=== PATIENT | female | born 1980 | race Caucasian/White ===

== ENCOUNTER → 2017-07-04 | Outpatient (CLI) | payer OTHER ==
[~2017-07-04] MED LIST: ALBU90I INH; AMOX500 PO; APAP PO; ASPI81EC; AZIT250 PO; Antivert25 MG PO; BASAGLAR K100 UNIT/1; BENZ100A PO; CEFA500; CEFU250 PO; CEPH500 PO; CLAR500 PO; CLIN150; CLIN150 PO; CODGUAEL PO; CRUTCH2 USE; CYCL10 PO; CYMBALTA PO; Cipro500 MG PO; DESO.25TC; DIAZ5 PO; DIPH50 PO; DULO30 PO; DULO60 PO; DURACEF; ERGO400 PO; ESTR2 PO; Estradiol1 MG PO; FLUO20; GABA300; GABA300 PO; HYDACE10B PO; HYDACE5; HYDACE5 PO; HYDMOR2 PO; HYDROCO PO; IBUP600 PO; IBUP800 PO; INSUASPI SC; INSUASPI SUBQ; INSULANI; INSULANI SC; INSULANI SUBQ; INSULANPEN SC; Keflex500 MG PO; LEVO750 PO; LEVSOD125; LEVSOD125 PO; LEVSOD150 PO; LEVSOD175 PO; LEVSOD88 PO; LOPE2C PO; MECL25; MELA3 PO; METR500 PO; NAPR375 PO; NAPR500 PO; NITR100CA; NOVALOG; ONDA4 PO; ONDA4ODT MM; OXYACE5T PO; OXYC10TA19 PO; PANT40 PO; PENVK500; PHENA100; PHENA200 PO; POTCHL20ER PO; PROC10 PO; PROM12.5S PR; PROM25; PROM25 PO; PROM25S PR; PSEU120ER PO; RANI150 PO; RXHYDACE PO; RXHYOS.125 PO; RXOXYACE PO; SULI150 PO; SULTRIDS PO; TRAM50 PO; Valium5 MG PO; Zofran4 MG PO; [UNRECOGNIZED DRUG - OTHER]
[2017-07-04 17:36] LABS: Bilirubin, Urine Neg (Neg); Blood, Urine 1+ (Neg); Glucose Qualitative, Urine Neg (Neg); Ketones, Urine Neg (Neg); Leukocyte Esterase, Urine 1+ (Neg); Nitrite, Urine Neg (Neg); Protein, Urine Neg (Neg); Urobilinogen, Urine NORM (Normal)
[2017-07-04 17:43] LABS: Appearance, Urine Clear (Clear); Color, Urine Yellow (P-Yellow)
[2017-07-04 17:44] LABS: White Blood Cells, Urine 50-100 /hpf (0-5)
[2017-07-04 17:45] LABS: Bacteria Few /hpf; Squamous Epithelial Cells Few /hpf (Few)
== END | disposition home or self-care (01) ==
LOC: LAB 16:48
PROVIDERS: Nurse Practitioner Family
DX: N39.0 Urinary tract infection, site not specified (principal)
CPT/HCPCS: 81001; 87077; 87086; 87186

== ENCOUNTER → 2017-08-02 | Outpatient (CLI) | payer OTHER | LOC: LAB SHORT 18:13 | DX: N39.0 Urinary tract infection, site not specified (principal) | CPT/HCPCS: 87077; 87086; 87186 ==

== ENCOUNTER → 2019-05-02 | Outpatient (CLI) | payer OTHER ==
[2019-05-03 06:24] LABS: Candida species (DNA Probe) Negative (NEGATIVE); G. vaginalis (DNA Probe) Positive (NEGATIVE); T. vaginalis (DNA Probe) Negative (NEGATIVE)
[2019-05-04 06:07] LABS: CHLAMYDIA TRACHOMATIS, NAA Negative (Negative); NEISSERIA GONORRHOEAE, NAA Negative (Negative)
== END | disposition home or self-care (01) ==
LOC: LAB UCHC 15:28 → LAB SHORT 15:28
PROVIDERS: Nurse Practitioner Family
DX: R30.0 Dysuria (principal)
CPT/HCPCS: 87070; 87077; 87086; 87186; 87205; 87480; 87491; 87510; 87591; 87660

== ENCOUNTER → 2019-06-27 | Outpatient (CLI) | payer OTHER | END | disposition home or self-care (01) | LOC: LAB SHORT 17:39 → LAB 17:39 → LAB FUT 06-27 17:10 | DX: R30.0 Dysuria (principal); R30.9 Painful micturition, unspecified | CPT/HCPCS: 87086 ==

== ENCOUNTER → 2019-10-15 | Outpatient (CLI) | payer OTHER ==
[2019-10-15 17:22] LABS: Source, Urine Clean Catch
[2019-10-15 18:07] LABS: Bilirubin, Urine Neg (Neg); Blood, Urine Neg (Neg); Glucose Qualitative, Urine 4+ (Neg); Ketones, Urine Neg (Neg); Leukocyte Esterase, Urine Neg (Neg); Nitrite, Urine Neg (Neg); Protein, Urine Neg (Neg); Urobilinogen, Urine NORM (Normal)
[2019-10-15 18:16] LABS: Appearance, Urine Hazy (Clear); Color, Urine Yellow (P-Yellow)
[2019-10-15 18:18] LABS: Bacteria Many /hpf; Red Blood Cells, Urine Not Seen /hpf (0-2); Squamous Epithelial Cells Not Seen /hpf (Few); White Blood Cells, Urine 0-2 /hpf (0-5)
== END | disposition home or self-care (01) ==
LOC: OLS 17:18 → LAB SHORT 17:18 → LAB FUT 05-02 18:20 → EDSTATUS 05-02 18:20
PROVIDERS: Nurse Practitioner Family
DX: N39.0 Urinary tract infection, site not specified (principal)
CPT/HCPCS: 81001; 87077; 87086; 87186

== ENCOUNTER → 2019-11-06 | Outpatient (CLI) | payer OTHER ==
[2019-11-06 16:42] LABS: Source, Urine Clean Catch
[2019-11-06 17:30] LABS: Blood, Urine 1+ (Neg); Glucose Qualitative, Urine 1+ (Neg); Ketones, Urine 1+ (Neg); Leukocyte Esterase, Urine 1+ (Neg); Nitrite, Urine Neg (Neg); Protein, Urine 2+ (Neg); Urobilinogen, Urine 1+ (Normal)
[2019-11-06 17:44] LABS: Appearance, Urine Cloudy (Clear); Bilirubin, Urine 1+ (Neg); Color, Urine Yellow (P-Yellow)
[2019-11-06 17:46] LABS: Amorphous Heavy (0-Heavy); Bacteria Mod /hpf
[2019-11-06 17:47] LABS: Red Blood Cells, Urine 0-2 /hpf (0-2); Squamous Epithelial Cells Few /hpf (Few)
== END | disposition home or self-care (01) ==
LOC: LAB SHORT 16:41 → OLS 16:41 → LAB FUT 11-04 13:25
PROVIDERS: Nurse Practitioner Family
DX: N39.0 Urinary tract infection, site not specified (principal)
CPT/HCPCS: 81001; 87086

== ENCOUNTER 2020-06-29 17:13 | Emergency (ER) | payer OTHER ==
[~2020-06-29] VITALS: Ht 154.9 cm; Wt 59.0 kg
[2020-06-29 18:20] LABS: BASOPHILS ABSOLUTE AUTO 0.11 K/mm3 (0.00-0.23); BASOPHILS PERCENT AUTO 1 % (0-2); EOSINOPHILS ABSOLUTE AUTO 0.41 K/mm3 (0.00-0.68); EOSINOPHILS PERCENT AUTO 5 % (0-6); Hematocrit 35.2 % (33.0-51.0); Hemoglobin 12.8 g/dL (11.5-16.0); IMMATURE GRAN ABSOLUTE AUTO 0.02 K/mm3 (0.00-0.10); IMMATURE GRAN PERCENT AUTO 0 % (0-1); LYMPHOCYTES ABSOLUTE AUTO 4.04 K/mm3 (0.84-5.20); LYMPHOCYTES PERCENT AUTO 44 % (21-46); MONOCYTES PERCENT AUTO 6 % (4-13); Mean Corpuscular HGB 30.4 pg (26.0-34.0); Mean Corpuscular HGB Conc 36.4 g/dL (31.5-36.5); Mean Corpuscular Volume 84 fL (80-100); Mean Platelet Volume 10.5 fL (9.1-12.4); NEUTROPHILS ABSOLUTE AUTO 4.08 K/mm3 (1.96-9.15); NEUTROPHILS PERCENT AUTO 45 % (41-73); Platelet Count 350 K/mm3 (150-400); RDW Coefficient Variation 11.6 % (11.7-14.2); RDW Standard Deviation 35.3 fL (35.1-46.3); Red Blood Cell Count 4.21 M/mm3 (3.80-5.20); White Blood Cell Count 9.16 K/mm3 (4.00-11.30)
[2020-06-29 18:22] LABS: Base Excess Venous 0.3 mmol/L; Bicarbonate Venous 24.6 mmol/L (24.0-30.0); PCO2 Venous 37.2 mmHg (38-42); PO2 Venous 47.3 mmHg (38-42); pH Blood Venous 7.43 (7.34-7.37)
[2020-06-29 18:49] LABS: Albumin, Blood 3.9 g/dL (3.4-5.0); Albumin/Globulin Ratio 0.9 (0.8-1.8); Bilirubin, Total 0.5 mg/dL (0.1-1.0); Bun/Creatinine Ratio 12.3 (12.0-20.0); Calcium, Blood 9.7 mg/dL (8.5-10.1); Creatinine, Blood 1.14 mg/dL (0.40-1.00); Globulin, Blood 4.4 g/dL (2.2-4.0); Potassium, Blood 4.2 mmol/L (3.5-5.5); Total Protein, Blood 8.3 g/dL (6.4-8.2)
[2020-06-29 19:02] LABS: Beta-hydroxybutyrate 7.9 mg/dL (0.2-2.8)
[2020-06-29 20:34] LABS: Source, Urine Clean Catch
[2020-06-29 20:37] LABS: Appearance, Urine Clear (Clear); Bilirubin, Urine Neg (Neg); Blood, Urine Neg (Neg); Color, Urine Yellow (P-Yellow); Glucose Qualitative, Urine 4+ (Neg); Ketones, Urine 2+ (Neg); Leukocyte Esterase, Urine Neg (Neg); Nitrite, Urine Neg (Neg); Protein, Urine Neg (Neg); Urobilinogen, Urine NORM (Normal)
[2020-06-29 23:02] LABS: Anion Gap 6 mmol/L (6-16); Blood Urea Nitrogen 11 mg/dL (8-24); Bun/Creatinine Ratio 10.9 (12.0-20.0); CO2, Blood 25 mmol/L (21-32); Calcium, Blood 7.9 mg/dL (8.5-10.1); Chloride, Blood 105 mmol/L (98-108); Creatinine, Blood 1.01 mg/dL (0.40-1.00); Glomerular Filtration Rate >60 (60-); Glucose, Blood 315 mg/dL (70-99); Potassium, Blood 3.7 mmol/L (3.5-5.5); Sodium, Blood 136 mmol/L (136-145)
== END 2020-06-30 00:05 | disposition home or self-care (01) ==
LOC: ER 17:13
PROVIDERS: Emergency Medicine; Student in an Organized Health Care Education/Training Program
DX: E11.65 Type 2 diabetes mellitus with hyperglycemia (principal); R10.9 Unspecified abdominal pain; E03.9 Hypothyroidism, unspecified; E11.43 Type 2 diabetes mellitus with diabetic autonomic (poly)neuropathy; K31.84 Gastroparesis; F17.210 Nicotine dependence, cigarettes, uncomplicated; Z79.3 Long term (current) use of hormonal contraceptives; Z79.4 Long term (current) use of insulin; Z79.899 Other long term (current) drug therapy
CPT/HCPCS: 36415; 71046; 74177; 80048; 80053; 81003; 82010; 82803; 82947; 83605; 85025; 96361; 96374-59; 99285-25; J2550; J7030; Q9967

== ENCOUNTER → 2021-11-02 | Outpatient (CLI) | payer OTHER | END | disposition home or self-care (01) | LOC: LAB SHORT 12:15 → LAB 12:15 | DX: K21.9 Gastro-esophageal reflux disease without esophagitis (principal); R11.2 Nausea with vomiting, unspecified | CPT/HCPCS: 87338 ==

== ENCOUNTER → 2022-07-26 | Outpatient (CLI) | payer OTHER ==
[2022-07-26 17:38] LABS: U Amphetamine Screen Not Detected; U Barbituate Screen Not Detected; U Benzodiazapine Screen DETECTED; U Buprenorphine Screen Not Detected; U Cannabinoids Screen DETECTED; U Cocaine Screen Not Detected; U Methadone Screen Not Detected; U Methamphetamine Screen Not Detected; U Opiates Screen Not Detected; U Oxycodone Screen Not Detected; U Phencyclidine Screen Not Detected; U Propoxyphene Screen Not Detected
== END | disposition home or self-care (01) ==
LOC: LAB 16:18 → LAB SHORT 16:18
PROVIDERS: Nurse Practitioner Psychiatric/Mental Health
DX: F41.1 Generalized anxiety disorder (principal)

== ENCOUNTER 2022-08-07 13:03 | Emergency (ER) | payer OTHER ==
[~2022-08-07] VITALS: Ht 170.2 cm; Wt 62.1 kg
[2022-08-07] MEDS ORDERED: Norco 5-325 Ta1 EACH PO (15:01)
== END 2022-08-07 15:08 | disposition home or self-care (01) ==
LOC: ER 13:03
DX: S20.212A Contusion of left front wall of thorax, initial encounter (principal); W01.0XXA Fall on same level from slipping, tripping and stumbling without subsequent striking against object, initial encounter; E11.9 Type 2 diabetes mellitus without complications; E03.9 Hypothyroidism, unspecified; F17.210 Nicotine dependence, cigarettes, uncomplicated; Z88.2 Allergy status to sulfonamides; Z88.8 Allergy status to other drugs, medicaments and biological substances; Z88.6 Allergy status to analgesic agent; Z88.1 Allergy status to other antibiotic agents; Z91.040 Latex allergy status; Z79.899 Other long term (current) drug therapy; Z79.4 Long term (current) use of insulin
CPT/HCPCS: 71046

== ENCOUNTER 2022-08-12 06:51 | Inpatient (IN) | payer OTHER ==
[~2022-08-12] VITALS: Ht 154.9 cm; Wt 68.4 kg
[~2022-08-12 06:51] MED LIST changes: -BASAGLAR K100 UNIT/1; +BASAGLAR K100 UNIT/1 SC; +Norco 5-325 Ta1 EACH PO
[2022-08-12 07:17] LABS: BASOPHILS ABSOLUTE AUTO 0.08 K/mm3 (0.00-0.23); BASOPHILS PERCENT AUTO 1 % (0-2); EOSINOPHILS PERCENT AUTO 0 % (0-6); Hematocrit 35.4 % (33.0-51.0); Hemoglobin 11.9 g/dL (11.5-16.0); IMMATURE GRAN ABSOLUTE AUTO 0.07 K/mm3 (0.00-0.10); IMMATURE GRAN PERCENT AUTO 1 % (0-1); LYMPHOCYTES ABSOLUTE AUTO 1.55 K/mm3 (0.84-5.20); LYMPHOCYTES PERCENT AUTO 11 % (21-46); MONOCYTES ABSOLUTE AUTO 0.65 K/mm3 (0.16-1.47); MONOCYTES PERCENT AUTO 5 % (4-13); Mean Corpuscular HGB 30.6 pg (26.0-34.0); Mean Corpuscular HGB Conc 33.6 g/dL (31.5-36.5); Mean Corpuscular Volume 91 fL (80-100); Mean Platelet Volume 10.2 fL (9.1-12.4); NEUTROPHILS ABSOLUTE AUTO 11.99 K/mm3 (1.96-9.15); NEUTROPHILS PERCENT AUTO 84 % (41-73); Platelet Count 439 K/mm3 (150-400); RDW Coefficient Variation 12.2 % (11.7-14.2); RDW Standard Deviation 40.5 fL (35.1-46.3); Red Blood Cell Count 3.89 M/mm3 (3.80-5.20); White Blood Cell Count 14.34 K/mm3 (4.00-11.30)
[2022-08-12 07:57] LABS: Albumin, Blood 3.3 g/dL (3.4-5.0); Albumin/Globulin Ratio 0.6 (0.8-1.8); Bilirubin, Total 0.5 mg/dL (0.1-1.0); Calcium, Blood 9.7 mg/dL (8.5-10.1); Creatinine, Blood 1.04 mg/dL (0.40-1.00); Globulin, Blood 5.2 g/dL (2.2-4.0); Potassium, Blood 5.3 mmol/L (3.5-5.5); Total Protein, Blood 8.5 g/dL (6.4-8.2)
[2022-08-12] MEDS ORDERED: SERT100 PO (10:36)
[2022-08-12] MEDS ORDERED: GABA100 PO (10:38)
[2022-08-12] MEDS ORDERED: INSULANPEN SC (10:40)
[2022-08-12 11:26] LABS: Bun/Creatinine Ratio 21.4 (12.0-20.0); Calcium, Blood 8.7 mg/dL (8.5-10.1); Creatinine, Blood 1.03 mg/dL (0.40-1.00); Potassium, Blood 4.2 mmol/L (3.5-5.5)
--- NOTE | 2022-08-12 12:37 | NUR ---
ADMIT PT ARRIVED TO CIU 16 AT 1020. PT ALERT AND ORIENTED, ABLE TO STAND AND TRANSFER SELF TO BED WITH MINIMAL ASSIST. PT NAUSEOUS AND RETCHING. PRN ZOFRAN GIVEN WITH MILD EFFECT. ABOUT AN HOUR LATER PT WAS RETCHING AGAIN SO PRN PHENERGAN GIVEN WITH BETTER EFFECT. PT GOT UP TO COMMODE, BUT ONLY HAD A SMEAR. NO VOID YET. ANION GAP AND CO2 CORRECTED. DR. BROWNING AWARE, BUT SINCE PT IS NAUSEOUS STILL PLAN IS TO CONTINUE INSULIN GTT AND REASSESS ABILITY TO TAKE PO AT 1600.
[2022-08-12 14:52] LABS: Bun/Creatinine Ratio 21.3 (12.0-20.0); Calcium, Blood 8.3 mg/dL (8.5-10.1); Creatinine, Blood 0.94 mg/dL (0.40-1.00); Potassium, Blood 3.9 mmol/L (3.5-5.5)
--- NOTE | 2022-08-12 17:11 | NUR ---
SHIFT SUMMARY PT HAS CONTINUED TO BE NAUSEOUS AND RETCH DESPITE ANTIEMETICS. AFTER [facility] RECEIVES A DOSE SHE HAS A BRIEF RESPITE BEFORE THE NAUSEA RETURNS. PT'S ANION GAP HAS CLOSED. SPOKE WITH DR. BROWNING ABOUT THE INSULIN GTT AND PLAN IS TO LEAVE GTT GOING UNTIL PT'S NAUSEA SUBSIDES AND SHE IS ABLE TO TOLERATE PO INTAKE. LUNGS REMAIN CLEAR, RA, SR, BP STABLE. NO VOID YET AND PT HAS NO URGE TO VOID. WILL BLADDER SCAN IF UNABLE TO VOID. CONTINUING TO MONITOR.
--- NOTE | 2022-08-12 18:10 | NUR ---
SPOKE WITH DR. BROWNING ABOUT PT'S PERSISTENT NAUSEA. RECEIVED ORDER FOR ONE TIME ORDER OF ATIVAN TO TRY. IF IT HELPS WITH THE NAUSEA, DR. BROWNING GAVE ORDERS TO GIVE Q4H PRN. PT ALSO GOT UP TO THE COMMODE AND VOIDED, BUT SHE HAD A SMALL STOOL WELL THAT MIXED WITH IT SO UNABLE TO SEND UA.
[2022-08-12 19:03] LABS: Bun/Creatinine Ratio 18.6 (12.0-20.0); Calcium, Blood 8.4 mg/dL (8.5-10.1); Creatinine, Blood 0.97 mg/dL (0.40-1.00); Potassium, Blood 4.1 mmol/L (3.5-5.5)
[2022-08-12 23:54] LABS: Bun/Creatinine Ratio 18.4 (12.0-20.0); Calcium, Blood 8.2 mg/dL (8.5-10.1); Creatinine, Blood 0.93 mg/dL (0.40-1.00); Potassium, Blood 3.8 mmol/L (3.5-5.5)
[2022-08-13 05:33] LABS: BASOPHILS ABSOLUTE AUTO 0.04 K/mm3 (0.00-0.23); BASOPHILS PERCENT AUTO 0 % (0-2); EOSINOPHILS ABSOLUTE AUTO 0.03 K/mm3 (0.00-0.68); EOSINOPHILS PERCENT AUTO 0 % (0-6); Hematocrit 27.4 % (33.0-51.0); Hemoglobin 9.2 g/dL (11.5-16.0); IMMATURE GRAN ABSOLUTE AUTO 0.14 K/mm3 (0.00-0.10); IMMATURE GRAN PERCENT AUTO 1 % (0-1); LYMPHOCYTES ABSOLUTE AUTO 2.36 K/mm3 (0.84-5.20); LYMPHOCYTES PERCENT AUTO 16 % (21-46); MONOCYTES ABSOLUTE AUTO 0.83 K/mm3 (0.16-1.47); MONOCYTES PERCENT AUTO 6 % (4-13); Mean Corpuscular HGB 30.1 pg (26.0-34.0); Mean Corpuscular HGB Conc 33.6 g/dL (31.5-36.5); Mean Corpuscular Volume 90 fL (80-100); Mean Platelet Volume 10.1 fL (9.1-12.4); NEUTROPHILS ABSOLUTE AUTO 11.26 K/mm3 (1.96-9.15); NEUTROPHILS PERCENT AUTO 77 % (41-73); Platelet Count 361 K/mm3 (150-400); RDW Coefficient Variation 12.8 % (11.7-14.2); RDW Standard Deviation 41.7 fL (35.1-46.3); Red Blood Cell Count 3.06 M/mm3 (3.80-5.20); White Blood Cell Count 14.66 K/mm3 (4.00-11.30)
[2022-08-13 05:53] LABS: Bun/Creatinine Ratio 16.5 (12.0-20.0); Calcium, Blood 8.3 mg/dL (8.5-10.1); Creatinine, Blood 0.97 mg/dL (0.40-1.00); Potassium, Blood 3.9 mmol/L (3.5-5.5)
--- NOTE | 2022-08-13 06:21 | NUR ---
PATIENT IS AOX4, WEAK, NAUSEAOUS, AND DIZZY WITH AMBULATION. SMALL EMESIS X 5 EPISODES, WITH LOTS OF COUGHING. GAVE ZOFRAN, PHENERGAN, ATIVAN AND HALDOL WITH TEMPORARY RELIEF. SQ INSULIN ACHS. ONE TIME S/S AT 0615 FOR ESCALATING BG 322. PREVIOUS BG 269. GOAL TO CONTROL N/V, RESUME CCD AND RECEIVE SQ TO CONTROL BG.
[2022-08-13 11:38] LABS: Source, Urine Clean Catch
[2022-08-13 11:41] LABS: Appearance, Urine Clear (Clear); Bilirubin, Urine Neg (Neg); Blood, Urine Neg (Neg); Color, Urine Yellow (P-Yellow); Glucose Qualitative, Urine 4+ (Neg); Ketones, Urine 3+ (Neg); Leukocyte Esterase, Urine Neg (Neg); Nitrite, Urine Neg (Neg); Protein, Urine 2+ (Neg); Specific Gravity, Urine 1.015 (1.003-1.022); Urobilinogen, Urine NORM (Normal)
[2022-08-13 11:59] LABS: Red Blood Cells, Urine Not Seen /hpf (0-2); Squamous Epithelial Cells Mod /hpf (Few); White Blood Cells, Urine Not Seen /hpf (0-5)
[2022-08-13 12:00] LABS: Bacteria Rare /hpf
--- NOTE | 2022-08-13 12:35 | NUR ---
REASSESSMENT PT HAS BEEN RESTING THROUGHOUT THE MORNING. HER NAUSEA IS STILL PRESENT, BUT SHE HAS NOT BEEN RETCHING LIKE SHE WAS YESTERDAY. SPOKE WITH DR. BROWNING THIS AM AND BLOOD SUGAR CHECKS SWITCHED TO Q6 UNTIL PT IS EATING. IV FLUIDS ALSO RESTARTED. BLOOD SUGAR AT NOON WAS 56. PT WAS ABLE TO KEEP 120ML OF APPLE JUICE DOWN AND GLUCOSE WAS 81 40 MINUTES LATER. PT GIVEN ANOTHER 120ML OF APPLE JUICE TO SIP ON. LUNGS ARE CLEAR, RA, SR IN THE UPPER 90S, BP STABLE. PT GOT UP TO COMMODE AND VOIDED, UA SENT PER DR. BROWNING. PT HAS SPOKE WITH HER SO VIA PHONE AND UPDATED HIM.
--- NOTE | 2022-08-13 17:13 | NUR ---
SHIFT SUMMARY PT'S NAUSEA HAS PERSISTED THROUGHOUT THE SHIFT AND SHE JUST WANTED TO BE LFET ALONE MUCH POSSIBLE AND REST . SHE IS NOT RETCHING NEARLY MUCH YESTERDAY, BUT SHE STILL VOMITED LESS THAN 100ML THIS EVENING. HER BLOOD SUGAR WAS LOW AT NOON AND PT WAS ABLE TO KEEP APPLE JUICE DOWN, BUT HER PO INTAKE OVER THE SHIFT HAS BEEN MINIMAL. SR, LUNGS CLEAR, RA. GOT UP TO THE COMMODE AND VOIDED ONCE. NO BMS THIS SHIFT. CONTINUING TO MONITOR
--- NOTE | 2022-08-13 19:30 | NUR ---
ASSUMED CARE PATIENT IN BED SLEEPING NO FAMILY AT BEDSIDE VSS
[2022-08-14 04:02] LABS: Hematocrit 26.5 % (33.0-51.0); Hemoglobin 9.2 g/dL (11.5-16.0); Mean Corpuscular HGB Conc 34.7 g/dL (31.5-36.5); Mean Corpuscular Volume 89 fL (80-100); Mean Platelet Volume 10.1 fL (9.1-12.4); Platelet Count 321 K/mm3 (150-400); RDW Coefficient Variation 12.6 % (11.7-14.2); RDW Standard Deviation 41.5 fL (35.1-46.3); Red Blood Cell Count 2.97 M/mm3 (3.80-5.20); White Blood Cell Count 12.65 K/mm3 (4.00-11.30)
[2022-08-14 04:43] LABS: Magnesium, Blood 1.9 mg/dL (1.6-2.4)
[2022-08-14 04:50] LABS: Albumin, Blood 2.6 g/dL (3.4-5.0); Albumin/Globulin Ratio 0.8 (0.8-1.8); Bilirubin, Total 0.3 mg/dL (0.1-1.0); Bun/Creatinine Ratio 11.3 (12.0-20.0); Calcium, Blood 8.2 mg/dL (8.5-10.1); Creatinine, Blood 0.89 mg/dL (0.40-1.00); Globulin, Blood 3.4 g/dL (2.2-4.0); Phosphorus, Blood 2.1 mg/dL (2.5-4.9); Potassium, Blood 3.6 mmol/L (3.5-5.5)
--- NOTE | 2022-08-14 06:42 | NUR ---
PATIENT ALERT AND ORIENTED. VSS/BG STABLE. COMPLAINTS OF NAUSEA. NO EMESIS. PATIENT STATES SHE IS STILL UNABLE TO TOLERATE LIQUIDS AT THIS TIME.
[2022-08-14 07:09] LABS: HBSAG SCREEN Negative (Negative); HCV AB Non Reactive (Non Reactive); HEP A AB, IGM Negative (Negative); HEP B CORE AB, IGM Negative (Negative)
--- NOTE | 2022-08-14 09:14 | NUR ---
ASSUMED CARE OF KAREN AT 0700, INSULIN DRIP OFF, MAGNESIUM REPLACEMENT INFUSING, HUNG POTASSIUM PHOSPHATE PER ORDERS. PT COMPLAINS OF ABDOMINAL PAIN MORE ON THE LEFT LOWER ABDOMEN, COMPLAINS OF NAUSEA, REQUESTS ADDITIONAL MEDICATION. IN TO ROUND, NO CHANGES. SEE ASSESSMENT FOR MORE DETAILS.
--- NOTE | 2022-08-14 12:07 | NUR ---
KAREN TRIED TO EAT SOME CLEAR LIQUID LUNCH AND BEGAN DRIVE HEAVES AND EMESIS. ZOFRAN IV GIVEN PER AUG.
--- NOTE | 2022-08-14 14:24 | NUR ---
PT INCONTINENT OF STOOL AND TAKEN TO THE SHOWER FOR CLEANUP. CONT TO C/O NAUSEA AND HASN'T BEEN KEEPING ANYTHING DOWN YET TODAY. IV FLUIDS CONTINUE AT 100ML/HR. HAS BEEN MEDICATED WITH PHENERGAN AND ZOFRAN THUS FAR. PT SPENT A CONSIDERABLE AMOUNT OF TIME SPEAKING WITH THE PARTNER MARKETING INTERN, BRISA. PT IS BEING TRANSFERRED TO PCU. WILL GIVE REPORT WHEN ABLE.
--- NOTE | 2022-08-14 17:46 | NUR ---
SHIFT SUMMARY PT TRANSFERED TO ROOM PCU 16 FROM ICU. PT ORIENTED TO ROOM. MEDICATED WITH PHENEGRAN FOR NAUSEA. NS RESTARTED AT 100ML/HR. PT ADVANCED TO FULL LIQUID DIET. BLOOD SUGAR MEDICATED PER EMAR AND CHANGED TO ACHS CHECKS. PT RESTING IN BED. DENIES OTHER NEEDS AT THIS TIME.
--- NOTE | 2022-08-15 05:20 | NUR ---
SHIFT SUMMARY A/OX4, SBA TO BSC. TELE SR IN THE 90S, DENIES CHEST PAIN/PRESSURE. SPO2 >92% ON RA. C/O NAUSEA AND ABD PAIN, MEDICATED PER EMAR. VSS, NO ACUTE CHANGES AT THIS TIME. BED IN LOWEST POSITION WITH CALL LIGHT IN REACH. WILL CONTINUE TO MONITOR AND REPORT TO ONCOMING RN.
[2022-08-15 05:43] LABS: Hemoglobin 9.2 g/dL (11.5-16.0); Mean Corpuscular HGB 30.4 pg (26.0-34.0); Mean Corpuscular HGB Conc 34.1 g/dL (31.5-36.5); Mean Corpuscular Volume 89 fL (80-100); Mean Platelet Volume 10.3 fL (9.1-12.4); Platelet Count 342 K/mm3 (150-400); RDW Coefficient Variation 12.6 % (11.7-14.2); RDW Standard Deviation 41.1 fL (35.1-46.3); Red Blood Cell Count 3.03 M/mm3 (3.80-5.20); White Blood Cell Count 13.16 K/mm3 (4.00-11.30)
[2022-08-15 06:44] LABS: Albumin, Blood 2.5 g/dL (3.4-5.0); Albumin/Globulin Ratio 0.8 (0.8-1.8); Bilirubin, Total 0.5 mg/dL (0.1-1.0); Bun/Creatinine Ratio 9.8 (12.0-20.0); Calcium, Blood 7.8 mg/dL (8.5-10.1); Creatinine, Blood 0.91 mg/dL (0.40-1.00); Globulin, Blood 3.3 g/dL (2.2-4.0); Phosphorus, Blood 2.9 mg/dL (2.5-4.9); Potassium, Blood 3.3 mmol/L (3.5-5.5); Total Protein, Blood 5.8 g/dL (6.4-8.2)
--- NOTE | 2022-08-15 18:59 | NUR ---
END OF SHIFT NOTE / MEDICAL STATUS PT A&O X4. VSS. MONITOR SHOWING SR, HR 90s. SPO2 DESAT TO 87% ON RA, REQUIRING 2L NC. ATTEMPT TO TITRATE O2 DOWN W/ PT DESAT ON 1L NC. NC INCREASED BACK TO 2L. PT C/O NAUSEA T/O SHIFT, MEDICATED PER EMAR/PT REQUEST W/ PT REPORT OF LITTLE IMPROVEMENT UNTIL THIS EVENING, PT STATING "I FEEL LIKE THAT LAST PHENERGAN FINALLY TOOK CARE OF IT." PT CBG's STABLE. PT MADE MEDICAL NO TELE STATUS BY .
--- NOTE | 2022-08-16 05:35 | NUR ---
SHIFT SUMMARY A/OX4, SBA TO BSC. MED NO TELE STATUS. BP STABLE; DENIES CHEST PAIN/PRESSURE. SPO2 >92% ON 1L NC. C/O NAUSEA AND ABD PAIN, MEDICATED PER EMAR. CBG OF 62 THIS AM, D50 GIVEN PER ORDERS. VSS, NO ACUTE CHANGES AT THIS TIME. BED IN LOWEST POSITION WITH CALL LIGHT IN REACH. WILL CONTINUE TO MONITOR AND REPORT TO ONCOMING RN.
[2022-08-16 05:44] LABS: Hematocrit 26.6 % (33.0-51.0); Mean Corpuscular HGB 30.6 pg (26.0-34.0); Mean Corpuscular HGB Conc 33.8 g/dL (31.5-36.5); Mean Corpuscular Volume 91 fL (80-100); Mean Platelet Volume 10.7 fL (9.1-12.4); Platelet Count 327 K/mm3 (150-400); RDW Coefficient Variation 12.8 % (11.7-14.2); RDW Standard Deviation 42.1 fL (35.1-46.3); Red Blood Cell Count 2.94 M/mm3 (3.80-5.20); White Blood Cell Count 10.47 K/mm3 (4.00-11.30)
[2022-08-16 05:57] LABS: Albumin, Blood 2.4 g/dL (3.4-5.0); Albumin/Globulin Ratio 0.6 (0.8-1.8); Bilirubin, Total 0.4 mg/dL (0.1-1.0); Bun/Creatinine Ratio 4.1 (12.0-20.0); Calcium, Blood 7.8 mg/dL (8.5-10.1); Creatinine, Blood 0.98 mg/dL (0.40-1.00); Globulin, Blood 3.8 g/dL (2.2-4.0); Magnesium, Blood 1.9 mg/dL (1.6-2.4); Phosphorus, Blood 3.6 mg/dL (2.5-4.9); Potassium, Blood 3.6 mmol/L (3.5-5.5); Total Protein, Blood 6.2 g/dL (6.4-8.2)
[2022-08-16] MEDS ORDERED: Cefpodoxime Pr100 MG PO (17:42)
[2022-08-16] MEDS ORDERED: PYRI100 PO (17:43)
[2022-08-16] MEDS ORDERED: VISBIOME 112.51 EACH PO (17:44)
[2022-08-16] MEDS ORDERED: Norco 5-325 Ta1 EACH PO (17:45)
--- NOTE | 2022-08-16 18:49 | NUR ---
DISCHARGE HOME PT A&O X4. VSS. SPO2 > 92% ON 2L NC TITRATED TO RA W/ PT TOLERATING WELL. PT W/ CONTINUED INTERMITTENT NAUSEA, BUT REPORTING RELIEF W/ PRN IV PHENERGAN. PT W/ NO EMESIS. PT W/ L SIDE PAIN, W/ PT REPORT OF IMPROVEMENT W/ PRN PAIN MEDICATION PER EMAR. PT EAGER FOR DISCHARGE HOME. W/ ORDERS FOR DISCHARGE. DC INSTRUCTIONS REVIEWED W/ PT & SENT HOME W/ PT. PIVs REMOVED. PT TAKEN OUT BY WHEELCHAIR W/ BELONGINGS @ APPROX 4830.
== END 2022-08-16 17:50 | disposition home or self-care (01) | DRG 637 ==
LOC: ER 06:51 → ICUW 08:46 → PCU 08-14 15:37
PROVIDERS: Emergency Medicine; Family Medicine; ADMIT Internal Medicine
DX: E10.10 Type 1 diabetes mellitus with ketoacidosis without coma (principal); J96.91 Respiratory failure, unspecified with hypoxia; E87.0 Hyperosmolality and hypernatremia; E87.1 Hypo-osmolality and hyponatremia; N39.0 Urinary tract infection, site not specified; R94.5 Abnormal results of liver function studies; N18.30 Chronic kidney disease, stage 3 unspecified; F32.A Depression, unspecified; E10.43 Type 1 diabetes mellitus with diabetic autonomic (poly)neuropathy; K31.84 Gastroparesis; E03.9 Hypothyroidism, unspecified; B96.20 Unspecified Escherichia coli [E. coli] as the cause of diseases classified elsewhere; E87.70 Fluid overload, unspecified; F17.210 Nicotine dependence, cigarettes, uncomplicated; F12.10 Cannabis abuse, uncomplicated; R07.81 Pleurodynia; E10.65 Type 1 diabetes mellitus with hyperglycemia; E10.21 Type 1 diabetes mellitus with diabetic nephropathy; Z88.2 Allergy status to sulfonamides; Z88.1 Allergy status to other antibiotic agents; Z88.8 Allergy status to other drugs, medicaments and biological substances; Z91.040 Latex allergy status; Z79.4 Long term (current) use of insulin; Z79.899 Other long term (current) drug therapy; Z79.891 Long term (current) use of opiate analgesic; Z90.49 Acquired absence of other specified parts of digestive tract; Z90.710 Acquired absence of both cervix and uterus
CPT/HCPCS: 36415; 71045; 76705; 80048; 80053; 80074; 81001; 82947; 83036; 83690; 83735; 83880; 84100; 84443; 85025; 85027; 87077; 87086; 87186; 94760; 94761; 96361; 96374; 99284-25; A9270; C1751; J0696; J1630; J1650; J1815; J1940; J2060; J2405; J2550; J3475; J3480; J7030; J7042; J7060; J7799

== ENCOUNTER → 2022-09-04 | Outpatient (CLI) | payer OTHER ==
[~2022-09-04] MED LIST changes: +Cefpodoxime Pr100 MG PO; +GABA100 PO; +PYRI100 PO; +SERT100 PO; +VISBIOME 112.51 EACH PO
== END | disposition home or self-care (01) ==
LOC: LAB SHORT 16:07 → LAB 16:07
DX: Z09 Encounter for follow-up examination after completed treatment for conditions other than malignant neoplasm (principal); Z87.448 Personal history of other diseases of urinary system
CPT/HCPCS: 87086

== ENCOUNTER 2023-01-15 20:57 | Inpatient (IN) | payer OTHER ==
[~2023-01-15] VITALS: Ht 154.9 cm; Wt 64.7 kg
[2023-01-15 21:32] LABS: BASOPHILS ABSOLUTE AUTO 0.08 K/mm3 (0.00-0.23); BASOPHILS PERCENT AUTO 1 % (0-2); EOSINOPHILS PERCENT AUTO 0 % (0-6); IMMATURE GRAN ABSOLUTE AUTO 0.08 K/mm3 (0.00-0.10); IMMATURE GRAN PERCENT AUTO 1 % (0-1); LYMPHOCYTES PERCENT AUTO 12 % (21-46); MONOCYTES ABSOLUTE AUTO 0.62 K/mm3 (0.16-1.47); MONOCYTES PERCENT AUTO 4 % (4-13); Mean Corpuscular HGB 30.8 pg (26.0-34.0); Mean Corpuscular HGB Conc 34.2 g/dL (31.5-36.5); Mean Corpuscular Volume 90 fL (80-100); NEUTROPHILS PERCENT AUTO 82 % (41-73); Platelet Count 444 K/mm3 (150-400); RDW Standard Deviation 39.5 fL (35.1-46.3); Red Blood Cell Count 4.22 M/mm3 (3.80-5.20); White Blood Cell Count 14.18 K/mm3 (4.00-11.30)
[2023-01-15 21:52] LABS: Albumin, Blood 3.4 g/dL (3.4-5.0); Albumin/Globulin Ratio 0.7 (0.8-1.8); Bilirubin, Total 0.4 mg/dL (0.1-1.0); Bun/Creatinine Ratio 20.1 (12.0-20.0); Calcium, Blood 9.5 mg/dL (8.5-10.1); Creatinine, Blood 1.49 mg/dL (0.40-1.00); Globulin, Blood 5.1 g/dL (2.2-4.0); Potassium, Blood 5.7 mmol/L (3.5-5.5); Total Protein, Blood 8.5 g/dL (6.4-8.2)
[2023-01-15 22:28] LABS: Base Excess Venous -15.3 mmol/L; Bicarbonate Venous 14.2 mmol/L (24.0-30.0); PCO2 Venous 25.1 mmHg (38-42); pH Blood Venous 7.27 (7.34-7.37)
[2023-01-15 23:01] LABS: Beta-hydroxybutyrate 23.8 mg/dL (0.2-2.8)
[2023-01-16] VITALS (29 sets, daily range): BP systolic 101–154; BP diastolic 62–88
[2023-01-16 01:13] LABS: Source, Urine Clean Catch
[2023-01-16 01:15] LABS: Bilirubin, Urine Neg (Neg); Blood, Urine Neg (Neg); Glucose Qualitative, Urine 4+ (Neg); Ketones, Urine 4+ (Neg); Leukocyte Esterase, Urine Neg (Neg); Nitrite, Urine Neg (Neg); Protein, Urine 2+ (Neg); Specific Gravity, Urine 1.015 (1.003-1.022); Urobilinogen, Urine NORM (Normal)
[2023-01-16 01:23] LABS: Appearance, Urine Clear (Clear); Color, Urine Pale Yellow (P-Yellow)
[2023-01-16 01:24] LABS: Bacteria Not Seen /hpf; Red Blood Cells, Urine Not Seen /hpf (0-2); Squamous Epithelial Cells Few /hpf (Few); White Blood Cells, Urine Not Seen /hpf (0-5)
--- NOTE | 2023-01-16 01:46 | NUR ---
TRANSFER TO UNIT PT ARRIVED ON UNIT AT 0146 WTIH INSULIN GTT AT 2UNITS/HR. A&OX4 AND ABLE TO PROVIDE MEDICAL HX. PT TACHYCARDIC WITH RATES IN 110S, ALL OTHER VSS. NAUSEOUS AND VOMITING. MEDICATED PER EMAR ENDORSING ABD PAIN WITH SOME DIARRHEA IN THE ED. ALSO REPORTS DIFFICULTY VOIDING AND BLADDER SPASMS. WAS ABLE TO NOTIFY ED WHEN SHE NEEDED STRAIGHT CATHED, SAYS SHE CAN VOID ON OWN AT HOME BUT DOES HAVE DIFFICULTY. ORDER ENTERED FOR BLADDER SCANS. ONLY 1 POINT OF ACCESS, 2 DIFFERENT RNS TRIED TWO TIMES TO START ANOTHER IV WITH NO SUCCESS. NO ONE CURRENTLY AVAILABLE TO START POWERGLIDE. CURRENTLY ABLE TO RUN ALL MEDS WITH 1 POINT OF ACCESS. CBG CHECKS Q1 HR. NS RUNNING AT 100 MLS/HR
[2023-01-16 03:11] LABS: BASOPHILS ABSOLUTE AUTO 0.04 K/mm3 (0.00-0.23); BASOPHILS PERCENT AUTO 0 % (0-2); EOSINOPHILS ABSOLUTE AUTO 0.01 K/mm3 (0.00-0.68); EOSINOPHILS PERCENT AUTO 0 % (0-6); Hematocrit 33.5 % (33.0-51.0); Hemoglobin 11.5 g/dL (11.5-16.0); IMMATURE GRAN ABSOLUTE AUTO 0.05 K/mm3 (0.00-0.10); IMMATURE GRAN PERCENT AUTO 0 % (0-1); LYMPHOCYTES ABSOLUTE AUTO 2.15 K/mm3 (0.84-5.20); LYMPHOCYTES PERCENT AUTO 16 % (21-46); MONOCYTES ABSOLUTE AUTO 0.61 K/mm3 (0.16-1.47); MONOCYTES PERCENT AUTO 5 % (4-13); Mean Corpuscular HGB 30.7 pg (26.0-34.0); Mean Corpuscular HGB Conc 34.3 g/dL (31.5-36.5); Mean Corpuscular Volume 90 fL (80-100); Mean Platelet Volume 9.7 fL (9.1-12.4); NEUTROPHILS ABSOLUTE AUTO 10.65 K/mm3 (1.96-9.15); NEUTROPHILS PERCENT AUTO 79 % (41-73); Platelet Count 427 K/mm3 (150-400); RDW Standard Deviation 39.1 fL (35.1-46.3); Red Blood Cell Count 3.74 M/mm3 (3.80-5.20); White Blood Cell Count 13.51 K/mm3 (4.00-11.30)
[2023-01-16 03:29] LABS: Albumin/Globulin Ratio 0.7 (0.8-1.8); Bilirubin, Total 0.3 mg/dL (0.1-1.0); Bun/Creatinine Ratio 20.4 (12.0-20.0); Calcium, Blood 8.6 mg/dL (8.5-10.1); Creatinine, Blood 1.37 mg/dL (0.40-1.00); Globulin, Blood 4.4 g/dL (2.2-4.0); Potassium, Blood 5.2 mmol/L (3.5-5.5); Total Protein, Blood 7.4 g/dL (6.4-8.2)
--- NOTE | 2023-01-16 04:00 | NUR ---
UPDATE CBG CURRENTLY 277. REPORTED TO WHO ORDERED D5W 1/2 NS. STILL ONLY ONE IV. PER PHARMACY. INSULIN AND D5W 1/2NS OK TO RUN TOGETHER. IV COMPAZINE GIVEN TO PT FOR NAUSEA. REPORTS SHE FEELS LIKE SHE IS JUMPING OUT OF HER SKIN, A SIMILAR FEELING TO WHAT SHE FEELS LIKE WHEN SHE TAKES REGLAN, WHICH SHE IS ALLERGIC TO. COMPAZINE D/C'D, .5 MG ATIVAN GIVEN X1 WITH GOOD EFFECT. PO PHENERGAN ALSO ADDED TO THE MAR.
--- NOTE | 2023-01-16 05:34 | NUR ---
SHIFT SUMMARY NO ACUTE EVENTS. NAUSEA AND ABD PAIN SEEM TO BE IMPROVING PER PT. INSULIN GTT AND D5 1/2 NS RUNNING. PT STILL NEEDS MORE IV ACCESS. CURRENTLY IN SINUS TACH ALL OTHER VSS. PT CURRENTLY RESTING COMFORTABLY WATCHING TV.
--- NOTE | 2023-01-16 08:15 | NUR ---
INITIAL ASSESSMENT PATIENT ALERT AND ORIENTED X 4, AFEBRILE. PATIENT COMPLAINS OF PAIN IN ABD AND FLANKS. PATIENT APPEARS ANXIOUS. PATIENT WEAK BUT MOVES ALL EXTREMITIES AND REPOSITIONS SELF IN BED. PATIENT SATTING 90% AND GREATER ON RA. PATIENT IN ST, HR IN THE LOW 100S. SBP IN THE LOW 100S TO 120S. ABD TENDER. PATIENT STATES SHE IS NAUSEOUS. PATIENT IS ATTEMPTING ICE CHIPS AND SIPS. PATIENT STATES SHE HAS BASELINE BLADDER SPASMS. PATIENT HAD GOOD VOID PRIOR TO AM SHIFT PER SCHOOL COORDINATOR RN REPORT. PATIENT HAS SCATTERED BRUISES FROM LAB AND IV ATTEMPTS. D5 1/2 NS INFUSING AT 100 MLS/ HOUR. INSULIN DRIP AT 3 UNITS/ HOUR. LAST BLOOD SUGAR 223. BED LOW, CALL LIGHT IN REACH. WILL CONTINUE TO MONITOR PATIENT FREQUENTLY THROUGHOUT SHIFT.
[2023-01-16 09:40] LABS: Bun/Creatinine Ratio 18.9 (12.0-20.0); Calcium, Blood 8.6 mg/dL (8.5-10.1); Creatinine, Blood 1.27 mg/dL (0.40-1.00); Potassium, Blood 4.1 mmol/L (3.5-5.5)
[2023-01-16 09:59] LABS: Phosphorus, Blood 2.4 mg/dL (2.5-4.9); Thyroid Stimulating Hormone 3.9 uIU/mL (0.360-4.800)
--- NOTE | 2023-01-16 12:57 | NUR ---
PATIENT AFEBRILE. HR 90S TO LOW 100S. SBP LOW 100S TO 1-TEENS. NO COMPLAINTS OF PAIN. PRN ZOFRAN GIVEN FOR NAUSEA. PATIENT PLACED ON CLEAR LIQUID DIET AND ADVANCE TOLERATED. PATIENT GIVEN LONG ACTING INSULIN. INSULIN DRIP OFF. D5 1/2 NS DC'D. WILL CONTINUE TO MONITOR.
--- NOTE | 2023-01-16 15:00 | NUR ---
PATIENT AFEBRILE. HR IN THE 90S. SBP IN THE 1-TEENS. NO COMPLAINTS AT THIS TIME. WILL CONTINUE TO MONITOR.
[2023-01-16 16:12] LABS: Bun/Creatinine Ratio 17.2 (12.0-20.0); Calcium, Blood 8.3 mg/dL (8.5-10.1); Creatinine, Blood 1.28 mg/dL (0.40-1.00); Potassium, Blood 4.2 mmol/L (3.5-5.5)
--- NOTE | 2023-01-16 18:14 | NUR ---
SHIFT SUMMARY PATIENT REMAINED ALERT AND ORIENTED X 4, AFEBRILE. PATIENT GIVEN PRN TYLENOL ONCE THIS AM FOR COMPLAINTS OF ABD AND FLANK PAIN; NO COMPLAINTS SINCE. PATIENT ANXIOUS THIS AM BUT HAS NOT BEEN SINCE. PATIENT WEAK; 1 PERSON ASSIST WHEN OUT OF BED. PATIENT REMAINED SATTING 90% AND GREATER ON RA. PATIENT REMAINED SR TO ST, HR 90S TO LOW 100S. SBP LOW 100S TO 130S. PATIENT NAUSEOUS THIS AM BUT HAS IMPROVED THROUGHOUT THE DAY. PATIENT DIET INCREASED TOLERATED TO ADA THIS SHIFT. NO BM THIS SHIFT. PATIENT COMPLAINS OF CHRONIC BLADDER SPASMS AND PROBLEMS VOIDING AT HOME. PATIENT BLADDER SCANNED TWICE THIS SHIFT. NO CHANGES TO SKIN NOTED. PATIENT TRANSITIONED OFF OF INSULIN DRIP AND D5 1/2 NS THIS SHIFT. PATIENT RECEIVED 20 MM KPHOS AND 2 G MAG REPLACEMENTS THIS SHIFT. COMPLETED CHAIR BATH PERFORMED. BED LOW, CALL LIGHT IN REACH. REPORT WILL BE GIVEN TO ASSUMING UPHOLSTERY AUTO TRIMMER NURSE SHORTLY.
[2023-01-16 21:31] LABS: Bun/Creatinine Ratio 14.8 (12.0-20.0); Calcium, Blood 8.3 mg/dL (8.5-10.1); Creatinine, Blood 1.22 mg/dL (0.40-1.00)
[2023-01-17 00:33] VITALS: BP 131/78
--- NOTE | 2023-01-17 00:33 | NUR ---
PATIENT IS ALERT AND ORIENTED X4. 02 SATS >93% ON RA, DENIES SOB. HR 80s. BP STABLE. DENIES CP/PRESSURE. MEDICATED ONCE FOR NAUSEA. UP TO BSC 1 PERSON ASSIST AND VOIDED 300 MLS. TOLERATING PO FLUIDS WELL. VSS, NO COMPLAINTS. REPORT GIVEN TO MEDICAL FLOOR RN AND PATIENT MOVED TO ROOM 364, AT APPROX 0025.
--- NOTE | 2023-01-17 00:52 | NUR ---
TRANSFER NOTE; PT ARRIVES FROM ICU VIA WHEELCHAIR. THE PT IS AXO X4 AND A 1 ASSIST. THE PT DENIES ANY SOB, CHEST PAIN/PRESSURE, N/V OR PAIN. THE PT IS ABLE TO REST EASILY IN THE BED. THE PT DENIES ANY FURTHER NEEDS AT THIS TIME. CURRENTLY THE PT IS RESTING IN BED WITH THE BED IN THE LOWEST POSITION AND THE CALL LIGHT AT BEDSIDE.
[2023-01-17 04:44] LABS: BASOPHILS ABSOLUTE AUTO 0.06 K/mm3 (0.00-0.23); BASOPHILS PERCENT AUTO 1 % (0-2); EOSINOPHILS ABSOLUTE AUTO 0.38 K/mm3 (0.00-0.68); EOSINOPHILS PERCENT AUTO 3 % (0-6); Hematocrit 27.6 % (33.0-51.0); Hemoglobin 9.5 g/dL (11.5-16.0); IMMATURE GRAN ABSOLUTE AUTO 0.03 K/mm3 (0.00-0.10); IMMATURE GRAN PERCENT AUTO 0 % (0-1); LYMPHOCYTES ABSOLUTE AUTO 3.09 K/mm3 (0.84-5.20); LYMPHOCYTES PERCENT AUTO 26 % (21-46); MONOCYTES ABSOLUTE AUTO 0.92 K/mm3 (0.16-1.47); MONOCYTES PERCENT AUTO 8 % (4-13); Mean Corpuscular HGB 30.2 pg (26.0-34.0); Mean Corpuscular HGB Conc 34.4 g/dL (31.5-36.5); Mean Corpuscular Volume 88 fL (80-100); Mean Platelet Volume 10.2 fL (9.1-12.4); NEUTROPHILS PERCENT AUTO 62 % (41-73); Platelet Count 373 K/mm3 (150-400); RDW Standard Deviation 38.9 fL (35.1-46.3); Red Blood Cell Count 3.15 M/mm3 (3.80-5.20); White Blood Cell Count 11.88 K/mm3 (4.00-11.30)
[2023-01-17 04:57] VITALS: BP 122/74
[2023-01-17 05:00] VITALS: BP 122/74
[2023-01-17 05:12] LABS: Albumin, Blood 2.8 g/dL (3.4-5.0); Albumin/Globulin Ratio 0.8 (0.8-1.8); Bilirubin, Total 0.3 mg/dL (0.1-1.0); Bun/Creatinine Ratio 13.8 (12.0-20.0); Calcium, Blood 8.2 mg/dL (8.5-10.1); Creatinine, Blood 1.09 mg/dL (0.40-1.00); Globulin, Blood 3.6 g/dL (2.2-4.0); Potassium, Blood 4.3 mmol/L (3.5-5.5); Total Protein, Blood 6.4 g/dL (6.4-8.2)
--- NOTE | 2023-01-17 06:13 | NUR ---
SHIFT SUMMARY; SINCE TRANSFER PT HAS HAD A LOW BS OF 59 WHICH WAS TREATED WITH APPLEJUICE AND JELLO. BS ROGER TO 180 AND IS 219 THIS AM PER LABS. THE PT HAS ALSO COMPLAINED OF ABD PAIN AND BLOATING. PT HAS A HX OF GASTROPARESIS, I MEDICATED THE PT FOR NAUSEA AND GAVE HER TUMS WITH LITTLE TO NO RELIEF, CALLED DR INTERIANO FOR PAIN MEDS, PER DR. INTERIANO GIVE 25-50MCG OF FENTANYL Q4 PRN PAIN. I OFFERED THE PT A GI COCKTAIL BUT THE PT REFUSED STATING THAT SHE KNOWS THAT IT WILL MAKE HER PUKE. I OFFERED TYLENOL WELL BUT THE PT STATES THAT'S NOT STRONG ENOUGH. PT IS AXO X4 AND A STANDBY ASSIST TO THE BSC. THE PT DENIES ANY SOB OR CHEST PAIN/PRESSURE. CURRENTLY THE PT IS RESTING IN BED WITH THE BED IN THE LOWEST POSITION AND THE CALL LIGHT AT BEDSIDE. FIRE SAFETY ASSED UPON TRANSFER, PT DENIES HAVING ANY POSSIBLE IGNITION SOURCES IN POSSESSION.
[2023-01-17 08:00] VITALS: BP 128/77
--- NOTE | 2023-01-17 11:48 | NUR ---
SCREEN FOR IGNITION RISK, NO SOURCES FOUND. PT REPORTS SMOKING HISTORY, BUT DENIES NEED TO SMOKE.
[2023-01-17 13:11] LABS: SARS-Cov-2 (COVID-19) PCR, MMC NEGATIVE (NEGATIVE)
[2023-01-17 16:00] VITALS: BP 141/79
--- NOTE | 2023-01-17 17:02 | NUR ---
SHIFT SUMMARY PT REMAINS WEAK WITH TRANSFER STILL. SHE REPORTS INTERMITTENT NAUSEA, RELIEVED PER EMAR. TOLERATING SMALL AMOUNTS OF FOOD. ENCOURAGING ENSURE SUPPLEMENTS SENT FROM DIETARY. PT STATES THESE ARE DOING WELL FOR HER. UNABLE TO PROVIDE STOOL SAMPLE YET. PT CALLS APPROPRIATLY. DENIES SOB.
[2023-01-17 20:16] LABS: Adenovirus F 40/41 Not Detected (NOT DETECT); Astrovirus Not Detected (NOT DETECT); Campylobacter Sp Not Detected (NOT DETECT); Cryptosporidium Not Detected (NOT DETECT); Cyclospora Cayetanensis Not Detected (NOT DETECT); E. Coli O157 Not Detected (NOT DETECT); Entamoeba Histolytica Not Detected (NOT DETECT); Enteroaggregative E. coli-EAEC Not Detected (NOT DETECT); Enteropathogenic E. coli-EPEC Not Detected (NOT DETECT); Enterotoxigenic E. coli-ETEC Not Detected (NOT DETECT); Giardia Lamblia Not Detected (NOT DETECT); Norovirus GI/GII Not Detected (NOT DETECT); Plesiomonas Shigelloides Not Detected (NOT DETECT); Rotavirus A Not Detected (NOT DETECT); Salmonella Sp Not Detected (NOT DETECT); Sapovirus Not Detected (NOT DETECT); Shiga Toxin-prod E. coli-STEC Not Detected (NOT DETECT); Shigella/Enteroin E. coli-EIEC Not Detected (NOT DETECT); Vibrio Cholerae Not Detected (NOT DETECT); Vibrio Sp Not Detected (NOT DETECT); Yersinia Enterocolitica Not Detected (NOT DETECT)
[2023-01-17 20:44] VITALS: BP 136/81
[2023-01-18 04:29] VITALS: BP 119/75
--- NOTE | 2023-01-18 04:47 | NUR ---
PURPLE AND GREEN TOP SENT TO LAB
--- NOTE | 2023-01-18 04:56 | NUR ---
SHIFT SUMMARY NO ACUTE CHANGE TO PT CONDITION. PT COMPLAINED OF NAUSEA AND PAIN EARLIER IN THE SHIFT AND WAS MEDICATED PER EMAR. PT IS COOPERATIVE AND PLEASANT. CALL LIGHT IS WITHIN PT REACH AND SHE USES IT APPROPRIATELY. POWERGLIDE IV DRAWS GREAT.
[2023-01-18 04:57] LABS: BASOPHILS ABSOLUTE AUTO 0.08 K/mm3 (0.00-0.23); BASOPHILS PERCENT AUTO 1 % (0-2); EOSINOPHILS ABSOLUTE AUTO 0.51 K/mm3 (0.00-0.68); EOSINOPHILS PERCENT AUTO 6 % (0-6); Hematocrit 29.7 % (33.0-51.0); Hemoglobin 10.3 g/dL (11.5-16.0); IMMATURE GRAN ABSOLUTE AUTO 0.02 K/mm3 (0.00-0.10); IMMATURE GRAN PERCENT AUTO 0 % (0-1); LYMPHOCYTES ABSOLUTE AUTO 3.55 K/mm3 (0.84-5.20); LYMPHOCYTES PERCENT AUTO 41 % (21-46); MONOCYTES PERCENT AUTO 8 % (4-13); Mean Corpuscular HGB 30.3 pg (26.0-34.0); Mean Corpuscular HGB Conc 34.7 g/dL (31.5-36.5); Mean Corpuscular Volume 87 fL (80-100); NEUTROPHILS ABSOLUTE AUTO 3.77 K/mm3 (1.96-9.15); NEUTROPHILS PERCENT AUTO 44 % (41-73); Platelet Count 380 K/mm3 (150-400); RDW Coefficient Variation 11.9 % (11.7-14.2); RDW Standard Deviation 38.4 fL (35.1-46.3); White Blood Cell Count 8.63 K/mm3 (4.00-11.30)
[2023-01-18 05:35] LABS: Bun/Creatinine Ratio 11.8 (12.0-20.0); Calcium, Blood 8.7 mg/dL (8.5-10.1); Creatinine, Blood 1.02 mg/dL (0.40-1.00); Potassium, Blood 4.1 mmol/L (3.5-5.5)
[2023-01-18 07:46] VITALS: BP 120/70
[2023-01-18] MEDS ORDERED: Calcium Carbon500 MG PO (13:00)
[2023-01-18] MEDS ORDERED: ONDA4ODT MM (13:02)
[2023-01-18 14:49] VITALS: BP 119/77
--- NOTE | 2023-01-18 16:14 | NUR ---
Patient up to Ambulate independently. Gait steady. Discharge instructions reviewed with patient. Patient verbalizes understanding. Copy given to patient to take home. Patient States Post-Procedure ride home has been arranged. Discharged via wheelchair to private car for ride home. THE PATIENT WAS EDUCATED TO THE DANGERS AND POSIBLILITIES OF FIRE AND IGNITION DANGERS. THE PATIENT WAS DISCHARGED HOME AFTER HER IV ACCESS WAS REMOVED AND DISCHARGE INSTRUCTIONS WERE GIVEN.
== END 2023-01-18 16:26 | disposition home or self-care (01) | DRG 638 ==
LOC: ER 20:57 → ICUE 20:58 → MEDS 01-17 00:50 → ENPENDDIS 01-18 11:46 → MEDS 01-18 16:26
PROVIDERS: Student in an Organized Health Care Education/Training Program; ADMIT Internal Medicine
DX: E10.10 Type 1 diabetes mellitus with ketoacidosis without coma (principal); N17.9 Acute kidney failure, unspecified; F32.A Depression, unspecified; E03.9 Hypothyroidism, unspecified; F17.210 Nicotine dependence, cigarettes, uncomplicated; E10.43 Type 1 diabetes mellitus with diabetic autonomic (poly)neuropathy; K31.84 Gastroparesis; E87.5 Hyperkalemia; N18.30 Chronic kidney disease, stage 3 unspecified; E10.22 Type 1 diabetes mellitus with diabetic chronic kidney disease; E83.42 Hypomagnesemia; E83.39 Other disorders of phosphorus metabolism; B34.9 Viral infection, unspecified; Z20.822 Contact with and (suspected) exposure to COVID-19; E86.0 Dehydration; Z88.1 Allergy status to other antibiotic agents; Z88.2 Allergy status to sulfonamides; Z90.49 Acquired absence of other specified parts of digestive tract; Z90.710 Acquired absence of both cervix and uterus; Z88.8 Allergy status to other drugs, medicaments and biological substances; Z91.040 Latex allergy status; Z79.899 Other long term (current) drug therapy; Z79.4 Long term (current) use of insulin; Z79.891 Long term (current) use of opiate analgesic
CPT/HCPCS: 36415; 71045; 80048; 80053; 81001; 82010; 82803; 82947; 83735; 84100; 84443; 85025; 87507; 93005; 93010; 96361; 96374; 96375; 99285-25; A9270; C1751; J0780; J1650; J1815; J2060; J2405; J3010; J3475; J7030; J7040; J7042; U0002

== ENCOUNTER → 2023-03-13 | Outpatient (CLI) | payer OTHER ==
[~2023-03-13] MED LIST changes: +Calcium Carbon500 MG PO
[2023-03-15 13:04] LABS: Adenovirus F 40/41 Not Detected (NOT DETECT); Astrovirus Not Detected (NOT DETECT); Campylobacter Sp Not Detected (NOT DETECT); Cryptosporidium Not Detected (NOT DETECT); Cyclospora Cayetanensis Not Detected (NOT DETECT); E. Coli O157 Not Detected (NOT DETECT); Entamoeba Histolytica Not Detected (NOT DETECT); Enteroaggregative E. coli-EAEC Not Detected (NOT DETECT); Enteropathogenic E. coli-EPEC Not Detected (NOT DETECT); Enterotoxigenic E. coli-ETEC Not Detected (NOT DETECT); Giardia Lamblia Not Detected (NOT DETECT); Norovirus GI/GII Not Detected (NOT DETECT); Plesiomonas Shigelloides Not Detected (NOT DETECT); Rotavirus A Not Detected (NOT DETECT); Salmonella Sp Not Detected (NOT DETECT); Sapovirus Not Detected (NOT DETECT); Shiga Toxin-prod E. coli-STEC Not Detected (NOT DETECT); Shigella/Enteroin E. coli-EIEC Not Detected (NOT DETECT); Vibrio Cholerae Not Detected (NOT DETECT); Vibrio Sp Not Detected (NOT DETECT); Yersinia Enterocolitica Not Detected (NOT DETECT)
== END | disposition home or self-care (01) ==
LOC: LAB SHORT 09:50 → LAB 09:50
PROVIDERS: Nurse Practitioner Family
DX: R19.7 Diarrhea, unspecified (principal)
CPT/HCPCS: 83993; 87507

== ENCOUNTER 2023-10-18 18:35 | Inpatient (IN) | payer OTHER ==
[~2023-10-18] VITALS: Ht 154.9 cm; Wt 57.5 kg
[~2023-10-18 18:35] MED LIST changes: -GABA100 PO; -LEVSOD88 PO
[2023-10-18 19:25] LABS: Base Excess Venous -9.7 mmol/L; Bicarbonate Venous 17.1 mmol/L (24.0-30.0)
[2023-10-18 19:29] LABS: BASOPHILS ABSOLUTE AUTO 0.07 K/mm3 (0.00-0.23); BASOPHILS PERCENT AUTO 1 % (0-2); EOSINOPHILS ABSOLUTE AUTO 0.01 K/mm3 (0.00-0.68); EOSINOPHILS PERCENT AUTO 0 % (0-6); Hematocrit 38.3 % (33.0-51.0); Hemoglobin 13.2 g/dL (11.5-16.0); IMMATURE GRAN ABSOLUTE AUTO 0.03 K/mm3 (0.00-0.10); IMMATURE GRAN PERCENT AUTO 0 % (0-1); LYMPHOCYTES PERCENT AUTO 19 % (21-46); MONOCYTES PERCENT AUTO 5 % (4-13); Mean Corpuscular HGB 30.1 pg (26.0-34.0); Mean Corpuscular HGB Conc 34.5 g/dL (31.5-36.5); Mean Corpuscular Volume 87 fL (80-100); Mean Platelet Volume 10.7 fL (9.1-12.4); NEUTROPHILS ABSOLUTE AUTO 9.28 K/mm3 (1.96-9.15); NEUTROPHILS PERCENT AUTO 76 % (41-73); Platelet Count 452 K/mm3 (150-400); RDW Coefficient Variation 11.4 % (11.7-14.2); RDW Standard Deviation 36.8 fL (35.1-46.3); Red Blood Cell Count 4.38 M/mm3 (3.80-5.20); White Blood Cell Count 12.29 K/mm3 (4.00-11.30)
[2023-10-18 19:44] LABS: Albumin, Blood 4.2 g/dL (3.4-5.0); Albumin/Globulin Ratio 0.8 (0.8-1.8); Bilirubin, Total 0.4 mg/dL (0.1-1.0); Bun/Creatinine Ratio 21.7 (12.0-20.0); Calcium, Blood 10.6 mg/dL (8.5-10.1); Creatinine, Blood 1.89 mg/dL (0.40-1.00); Globulin, Blood 5.1 g/dL (2.2-4.0); Potassium, Blood 4.7 mmol/L (3.5-5.5); Total Protein, Blood 9.3 g/dL (6.4-8.2)
[2023-10-18] MEDS ORDERED: Ondansetron HCl 2 MG / ML 2ML Vial ONE (20:36)
[2023-10-18] MEDS ORDERED: NS 1,000 ML IV ONE ×2 (20:36→22:25)
[2023-10-18] MEDS ORDERED: NS 1,000 ML IV SCH (20:40)
[2023-10-18] MEDS ORDERED: Ondansetron HCl 2 MG / ML 2ML Vial IV PRN ×2 (20:40→22:30)
[2023-10-18 22:15] LABS: Calcium, Ionized (POC) 1.15 mmol/L (1.10-1.46); Chloride (POC) 106 mmol/L (98-108); Creatinine (POC) 2.1 mg/dL (0.6-1.0); Glucose (ISTAT POC) 368 mg/dL (70-99); Hemoglobin (POC) 11.6 g/dL (12.0-16.0); Sodium (POC) 132 mmol/L (135-148); Total CO2 (POC) 16 mmol/L (21-32)
[2023-10-18] MEDS ORDERED: Insulin Human Regular 100 UNIT in NS 100 ML IV SCH (22:25)
[2023-10-18] MEDS ORDERED: Acetaminophen 325 MG TABLET PO PRN (22:35)
[2023-10-18] MEDS ORDERED: Dextrose 50% 50 ML Syringe IV PRN (22:35)
[2023-10-18] MEDS ORDERED: Lactated Ringer's 1,000 ML IV SCH (23:00)
[2023-10-18 23:39] LABS: Bun/Creatinine Ratio 22.9 (12.0-20.0); Creatinine, Blood 1.75 mg/dL (0.40-1.00); Magnesium, Blood 1.5 mg/dL (1.6-2.4); Potassium, Blood 5.1 mmol/L (3.5-5.5)
[2023-10-19] VITALS (53 sets, daily range): BP systolic 114–158; BP diastolic 66–111
[2023-10-19] MEDS ORDERED: LORazepam 2 MG/ML 1ML Injection IV PRN (00:05)
[2023-10-19] MEDS ORDERED: Mag Sulfate 1 GM/D5% 100ML 100 ML IV ONE (00:05)
[2023-10-19] MEDS ORDERED: NS 250 ML IV PRN (00:45)
[2023-10-19 03:11] LABS: Base Excess Venous 5.5 mmol/L; Bicarbonate Venous 20.3 mmol/L (24.0-30.0); PCO2 Venous 36.6 mmHg (38-42); pH Blood Venous 7.35 (7.34-7.37)
[2023-10-19 04:22] LABS: Bun/Creatinine Ratio 21.5 (12.0-20.0); Calcium, Blood 9.2 mg/dL (8.5-10.1); Creatinine, Blood 1.72 mg/dL (0.40-1.00); Potassium, Blood 3.9 mmol/L (3.5-5.5)
[2023-10-19] MEDS ORDERED: D5W-1/2NS 1,000 ML IV SCH (04:30)
--- NOTE | 2023-10-19 05:48 | NUR ---
SHIFT SUMMERY PT ADMITTED W/DX DKA. ALERT AND ORIENTED X4 W/GENERALIZED WEAKNESS. AFEBRILE. ST ON THE SOUND EQUIPMENT MECHANIC W/BP WNL. NAUSEA/DRY HEAVING/SMALL AMOUNT OF ACUTAL VOMIT OVERNIGHT(GREEN BILE) PT STATES NAUSEA CONTINUES, HX OF GASTROPARESIS. SMALL BM OVERNIGHT. INSULIN GTT TITRATE FOR TARGET BLOOD GLUCOSE. D51/2NS INFUSING AT THIS TIME. AG IS CLOSED PER LAST SET OF LABS. MD ORDER FOR INSULIN GTT TO CONTINUE UNTIL PT ABLE TO TAKE PO AND N/V RESOLVES.
[2023-10-19 08:04] LABS: Bun/Creatinine Ratio 21.1 (12.0-20.0); Calcium, Blood 8.9 mg/dL (8.5-10.1); Creatinine, Blood 1.61 mg/dL (0.40-1.00); Potassium, Blood 3.9 mmol/L (3.5-5.5)
--- NOTE | 2023-10-19 08:16 | NUR ---
ASSUMED CARE OF PT AT 0715 BEDSIDE REPORT RECEIVED FROM JT SOTO. PT IS A/O. SR, BP WNL. O2 SAT 96% ON ROOM AIR, LUNGS CTA X ALL SANDHU. NO COUGH OR SOB. PT C/O NAUSEA, WORSE THAN HER BASELINE. ZOFRAN HAS BEEN INEFFECTIVE, GIVEN ATIVAN 0.5MG IV ORDERED WITH GOOD RELIEF. VOIDS USING BEDPAN, IS CONTINENT OF BLADDER AND BOWEL. SKIN INTACT. PIV X1 RIGHT FOREARM, FLUSHES WELL, SLUGGISH BLOOD RETURN. PG X1 TO RIGHT UPPER ARM, FLUSHES AND WITHDRAWS BLOOD WELL. INSULIN DRIP INFUSING AT 2 UNITS/HR AT ASSUMPTION OF CARE. TITRATED TO 2.5 WITH 0730 BLOOD GLUCOSE CHECK OF 212. D5 1/2 NS INFUSING AT 150ML/HR. NO FAMILY AT BEDSIDE. PT IS EXPECTING VISIT FROM MOTHER AND MISSIONARIES FOR BLESSING THIS AM. SIGNIFICANT OTHER SOLA CALLED AND GIVEN UPDATE VIA PHONE. WILL BE IN LATER THIS AM TO VISIT. DR. CALZADA ORDERED CLEAR LIQUID DIET TO START AND IF PT TOLERATES PO'S, INSUIN DRIP CAN BE D/C'D. POC ONGOING.
[2023-10-19] MEDS ORDERED: Enoxaparin 40 MG/0.4 ML SYR SC SCH (09:00)
[2023-10-19 10:02] LABS: Source, Urine Clean Catch
[2023-10-19 10:07] LABS: Appearance, Urine Clear (Clear); Bilirubin, Urine Neg (Neg); Blood, Urine Neg (Neg); Color, Urine Yellow (P-Yellow); Glucose Qualitative, Urine 4+ (Neg); Ketones, Urine 3+ (Neg); Leukocyte Esterase, Urine Neg (Neg); Nitrite, Urine Neg (Neg); Protein, Urine 2+ (Neg); Urobilinogen, Urine NORM (Normal)
[2023-10-19 10:13] LABS: Red Blood Cells, Urine 0-2 /hpf (0-2); Squamous Epithelial Cells Few /hpf (Few); White Blood Cells, Urine 0-2 /hpf (0-5)
[2023-10-19 10:15] LABS: Bacteria Many /hpf; Hyaline Casts 0-2 /lpf (0-2)
[2023-10-19 12:37] LABS: Calcium, Blood 8.8 mg/dL (8.5-10.1); Creatinine, Blood 1.5 mg/dL (0.40-1.00); Potassium, Blood 3.8 mmol/L (3.5-5.5)
[2023-10-19] MEDS ORDERED: Insulin Glargine-Yfgn 100 Unit/mL 3 ML SYR SC ONE (15:00)
[2023-10-19] MEDS ORDERED: Insulin Human Lispro 100 Units/ML 3ML Syringe SC SCH (16:30)
--- NOTE | 2023-10-19 17:13 | NUR ---
SHIFT SUMMARY PT A/O X4. TEARFUL AT TIMES ABOUT BEING NAUSEATED AND OVERALL FEELING UNWELL. HAS IMPROVED AND FELT BETTER THROUGHOUT THE SHIFT. SR-ST, BP WNL. O2 SAT > 94% ON ROOM AIR. ENCOURAGED COUGH AND DEEP BREATHS. CONTINUED MILD NAUSEA TREATED WITH ZOFRAN AND ATIVAN WITH GOOD RELIEF. NO VOMITING. VOIDS USING BSC, STABLE ON HER FEET WITH NO DIZZINESS. DOES C/O GENERALIZED WEAKNESS. SKIN INTACT. PIV X1 TO RIGHT FOREARM, FLUSHES WELL. PG TO RIGHT UPPER ARM, FLUSHES AND WITHDRAWS BLOOD WELL. INSULIN DRIP AND D5 1/2 NS BOTH OFF, PT TRANSITIONED TO LONG ACTING INSULIN, FS NOW AC/HS. POOR APPETITE, ENCOURAGED PO'S. MOTHER, SO AND 2 MISSIONARIES IN TO VISIT PT TODAY. POC ONGOING.
--- NOTE | 2023-10-19 19:44 | NUR ---
ASSUMPTION OF CARE THIS RN ASSUMED CARE OF PATIENT AT 1900. PT A&O X4. ABLE TO MAKE NEEDS KNOWN. TEARFUL AT TIMES WHEN TALKING ABOUT HOW FREQUENTLY SHE HAS BEEN SICK. AMBULATING TO BSC TO VOID WITH SBA. CONTINUES TO REPORT PAIN IN LEFT FLANK AND ABDOMEN, WORSE WITH MOVEMENT. SR ON MONITOR WITH HR 80-90'S. ON RA WITH SPO2 >92%. RR 12-14. BP STABLE. MEDICATING PER EMAR FOR NAUSEA; ALTERNATING ZOFRAN AND ATIVAN. PT REPORTS GOOD RELIEF WITH MEDICATIONS. POOR APPETITE REPORTED. PT REPORTEDLY DID NOT EAT DINNER. SNACKS AT BEDSIDE. PT REPORTS THAT SHE IS "WORKING ON GETTING THEM DOWN". BED IN LOWEST POSITION AND CALL LIGHT WITHIN REACH.
[2023-10-20] MEDS ORDERED: GLUCAGON SC (03:28)
[2023-10-20] MEDS ORDERED: DRIZALMA SPRINK40 MG PO (03:29)
[2023-10-20] MEDS ORDERED: DULOXETINE HCL60 M1 PO (03:29)
[2023-10-20] MEDS ORDERED: LORAZEPAM0.5 MG PO (03:30)
[2023-10-20] MEDS ORDERED: Loratadine10 MG PO (03:31)
[2023-10-20] MEDS ORDERED: CYCL10 PO (03:32)
[2023-10-20] MEDS ORDERED: INSULIN LI100 UNIT/6 SC (03:36)
[2023-10-20] MEDS ORDERED: VITAMIN D5000 UNIT PO (03:36)
[2023-10-20 03:51] VITALS: BP 135/84
[2023-10-20 07:27] VITALS: BP 137/86
[2023-10-20] MEDS ORDERED: Insulin Glargine-Yfgn 100 Unit/mL 3 ML SYR SC SCH ×2 (08:00→21:00)
--- NOTE | 2023-10-20 08:28 | NUR ---
0800- CALLED DR. CALZADA TO INFORM HIM PT'S OX=106. DID NOT ANSWER OR CALL BACK.
[2023-10-20] MEDS ORDERED: NS 1,000 ML IV SCH ×3 (08:35→17:00)
[2023-10-20 09:12] LABS: Bun/Creatinine Ratio 15.9 (12.0-20.0); Calcium, Blood 8.9 mg/dL (8.5-10.1); Creatinine, Blood 1.26 mg/dL (0.40-1.00); Potassium, Blood 4.3 mmol/L (3.5-5.5)
[2023-10-20] MEDS ORDERED: Sodium Bicarb 8.4% 1 MEQ/ML 50 ML Vial IV STA (10:42)
[2023-10-20] MEDS ORDERED: FentaNYL Citrate 50 MCG/ML 2 ML Injection IV ONE (11:00)
[2023-10-20] MEDS ORDERED: FentaNYL Citrate 50 MCG/ML 2 ML Injection IV PRN (11:00)
[2023-10-20] MEDS ORDERED: Insulin Human Lispro 100 Units/ML 3ML Syringe SC SCH (11:30)
[2023-10-20 13:09] LABS: Bun/Creatinine Ratio 13.8 (12.0-20.0); Creatinine, Blood 1.16 mg/dL (0.40-1.00); Potassium, Blood 3.9 mmol/L (3.5-5.5)
--- NOTE | 2023-10-20 14:50 | NUR ---
1100- VERBAL FROM DR. CALZADA TO CO GI PANEL DUE TO NO BM/LOOSE STOOL IN OVER 24 HRS.
[2023-10-20 15:53] VITALS: BP 131/80
--- NOTE | 2023-10-20 18:11 | NUR ---
SUMMARY- AAOX4. X1 ASSIST TO THE BATHROOM. PT WAS NAUSEATED ALL SHIFT INTERMITTENTLY. ZOFRAN AND ATIVAN MODERATELY HELPED PER PT. PT HAD ABDOMINAL PAIN RELIEVED BY FENTANYL.
[2023-10-20 20:03] VITALS: BP 116/65
[2023-10-21 04:15] VITALS: BP 142/79
[2023-10-21 06:44] LABS: Bun/Creatinine Ratio 8.4 (12.0-20.0); Calcium, Blood 8.2 mg/dL (8.5-10.1); Creatinine, Blood 0.96 mg/dL (0.40-1.00); Potassium, Blood 3.3 mmol/L (3.5-5.5)
[2023-10-21] MEDS ORDERED: Potassium Chloride 20 MEQ TabCR PO ONE (07:35)
[2023-10-21 07:50] VITALS: BP 141/82
[2023-10-21] MEDS ORDERED: Ondansetron HCl 2 MG / ML 2ML Vial IV PRN (08:05)
[2023-10-21] MEDS ORDERED: Insulin Glargine-Yfgn 100 Unit/mL 3 ML SYR SC SCH (09:00)
[2023-10-21] MEDS ORDERED: Promethazine HCl 25 MG Tab PO PRN (09:45)
[2023-10-21] MEDS ORDERED: Calcium Carbonate 500 MG Tab Chew PO PRN (10:00)
--- NOTE | 2023-10-21 11:15 | NUR ---
0800 CALLED REGARDING PT UNRESOLVED NAUSEA AND VOMITING. HE ORDERED ZOFRAN 8MG FROM [facility]. 929 CALLED PT CANNOT RECEIVE ZOFRAN UNTIL 11 AM. ORDERED PHENEGRAN 25MG Q4 PO. CALCIUM CARBONATE AND PROTONIX WERE ALSO ORDERED FOR HEARTBURN RELIEF, PTS HOME MEDICATIONS.
[2023-10-21 15:42] VITALS: BP 141/82
[2023-10-21] MEDS ORDERED: Pantoprazole Sodium 40 MG Tab PO SCH (16:30)
--- NOTE | 2023-10-21 18:28 | NUR ---
SHIFT SUMMARY PT IS A&OX4. SHE HAS BEEN NAUSEOUS THROUGHOUT THE SHIFT NEEDING EMAR MEDS REGULARLY. POOR APPETITE. 1 PER STAND BY ASSIST TO BSC FOR SAFETY THE PT IS WEAK. ROOM AIR WITH NO DISTRESS. ABDOMINAL PAIN CONTROLLED WITH EMAR MEDS. NO FURTHER CONCERNS.
[2023-10-21 20:21] VITALS: BP 157/101
[2023-10-22 02:45] VITALS: BP 121/67
[2023-10-22 07:33] VITALS: BP 150/88
[2023-10-22 07:39] LABS: Calcium, Blood 8.7 mg/dL (8.5-10.1); Magnesium, Blood 1.3 mg/dL (1.6-2.4); Potassium, Blood 3.4 mmol/L (3.5-5.5)
[2023-10-22] MEDS ORDERED: Mag Sulfate 1 GM/D5% 100ML 100 ML IV STA (07:58)
--- NOTE | 2023-10-22 08:05 | NUR ---
PT WITH CONTINUED NAUSEA AND PAIN TO ABDOMEN WITH EMAR MEDS NEEDED THROUGHTOUT NIGHT, ELEVATED CBG ON PT MONITOR CBG FSBS DURIGN NIGHT 395, tC TO DR HI WITH ORDERS TO COVER WITH CURRENT HUMALOG MEDIUM SCALE 1X UNSCHEDULED. 10 UNITS GIVEN R ARM SC. zOFRAN ADMINISTERD FOR NAUSEA, PATIENT REMAINED NAUSEA AND WITH ANXIETY AND AGITATION, ATIVAN WAS GIVEN. APOLOGETIC REPORTS REPORTS WOULD LIKE TO START DEPRESSION MEDS SHE STOPPED TWO WEEKS BEFORE ADMISSION. MAG AND BMP DRAWN THROUGH POWERGLIDE, AND SENT TO LAB, REPORTED TO AM NURSE, WILL F/U.
[2023-10-22] MEDS ORDERED: Potassium Chloride 40 MEQ in NS 250 ML IV ONE (09:40)
--- NOTE | 2023-10-22 12:23 | NUR ---
PT PAIN 9/10. SHE STATES THE FENTANYL BRINGS PAIN DOWN TO 3-4/10 BUT FOR ONLY ABOUT [address] CALZADA NOTIFIED. PER DR. CALZADA INCREASE DOSE TO 50 MCG Q4HR PRN.
[2023-10-22] MEDS ORDERED: FentaNYL Citrate 50 MCG/ML 2 ML Injection IV PRN (12:25)
--- NOTE | 2023-10-22 13:47 | NUR ---
DR. CALZADA AT PT BEDSIDE. PER DR. CALZADA ORDER NS @ 125 FOR 24 HRS AND PO ONDANSETRON TIDAC.
[2023-10-22] MEDS ORDERED: NS 1,000 ML IV SCH (13:50)
[2023-10-22 14:29] VITALS: BP 130/76
[2023-10-22] MEDS ORDERED: Ondansetron 4 MG SoluTab SL SCH (16:30)
--- NOTE | 2023-10-22 17:07 | NUR ---
SUMMARY PT IS ALERT AND ORIENTED X4, PAIN HAS BEEN CONTROLLED BY CURRENT MEDICATION REGIMEN. NAUSEA CONTINUES. PT IS SBA WITH FWW DUE TO WEAKNESS, GAIT IS UNSTEADY. CALLS APPROPRIATLY. TREATING PAIN AND NAUSEA PER EMAR. IV HYDRATION STARTED THIS SHIFT. POOR PO INTAKE. PLEASANT AND COOPERATIVE. CBG TREATED PER EMAR.
[2023-10-22 19:32] VITALS: BP 136/84
[2023-10-23 03:06] VITALS: BP 132/71
[2023-10-23] MEDS ORDERED: Dextrose 50% 50 ML Vial IV PRN (05:55)
--- NOTE | 2023-10-23 07:55 | NUR ---
SHIFT SUMMARY PT IS A&0 TO PERSON, PLACE AND SELF. SHE WAS WAY MORE SOMNOLENT THIS SHIFT, OTHER THAN THIS, THERE ARE NO ACUTE CHANGES. VSS ON 1L NC, PLACED ON TRILOGY WHEN ASLEEP. PER TELEMETRY PT IS IN SR 70-80'S. C/O HANDY, MEDICATED WITH TYLENOL. WICKING SYSTEM DRAINING ADEQUATE AMOUNTS OF CLEAR YELLOW URINE. NO BM THIS SHIFT. PT'S ABD IS MORE DISTENDED THAN PREVIOUS NOC. REPOSITIONED TOLERATED. BED IN LOWEST POSITION, CALL LIGHT WITHIN REACH. BED ALARM SET FOR PT'S SAFETY. ENHANCED PRECAUTIONS MAINTAINED. SEIZURE PADS ON BED.
[2023-10-23 08:00] VITALS: BP 140/80
--- NOTE | 2023-10-23 08:36 | NUR ---
SHIFT SUMMARY PT IS A&OX4, PLEASANT AND COOPERATIVE WITH CARES. VSS ON RA. C/O ADB PAIN, MEDICATED WITH IV FENTANYL. NAUSEOUS T/O SHIFT, MEDICATED WITH PRNS. PT INDEPENDENT TO BSC, REMINDED HER TO CALL IF SHE DOESN'T FEEL SAFE AMBULATING. PT'S HS BG WAS 173, ONLY GAVE HER SCHEDULED DOSE OF 6 UNITS OF GLARGINE. PT'S GLUCOMETER DEVICE ALARMED HER THAT HER BG WAS LOW, BG ON HOSPITAL DEVICE WAS 85. GAVE PERSON APPLE JUICE AND SHOAIB CRACKERS AND PEANUT BUTTER. BUT D/T PT'S CONSTANT NAUSEA SHE WAS'NT ABLE TO EAT MUCH. PT THEN FELL ASLEEP. HER DEVICE ALARMED HER LOW AGAIN AROUND 0400, HER BG WAS 80. PT ASKED FOR ROOTBEER, HER BG THEN CAME UP TO 120'S BY 0430. BED IN LOW POSITION, CALL LIGHT WITHIN REACH.
[2023-10-23 09:13] LABS: Bun/Creatinine Ratio 3.1 (12.0-20.0); Calcium, Blood 7.9 mg/dL (8.5-10.1); Creatinine, Blood 0.97 mg/dL (0.40-1.00); Potassium, Blood 3.7 mmol/L (3.5-5.5)
[2023-10-23] MEDS ORDERED: LORazepam 0.5 MG Tab PO PRN (11:50)
[2023-10-23] MEDS ORDERED: Cyclobenzaprine HCl 10 MG Tab PO PRN (11:50)
[2023-10-23] MEDS ORDERED: DULoxetine HCL 20 MG Cap DR PO SCH (12:00)
[2023-10-23] MEDS ORDERED: DULoxetine HCL 60 MG Capsule DR PO SCH (12:00)
[2023-10-23] MEDS ORDERED: Levothyroxine Sodium 100 MCG Vial IV ONE (12:20)
[2023-10-23 16:20] VITALS: BP 126/73
--- NOTE | 2023-10-23 16:23 | NUR ---
CALLED DR CALZADA- PT SPOKE TO SUPERVISOR BILLPOSTING ON CARE ROUNDING ABOUT HER MISSING HOME MEDS AND ASKED THAT HER ANIT-DEPRESSANTS BE RESTARTED. CALLED DR CALZADA THE PT IS MISSING SEVERAL HOME MEDS. DR CALZADA REVIEWED AND RESTARTED THE PT HOME MEDS. SPOKE TO HIM ABOUT DOING THE FIRST DOSE NOW OF THE LEVOTHYROXINE. HE DECLINED AND ORDERED A OT DOSE OF IV LEVOTHYROXINE.
--- NOTE | 2023-10-23 18:45 | NUR ---
SHIFT SUMMARY- PT ALERT AND ORIENTED, INDEPENDENT TO THE BSC. MD CAME TO SEE HER THIS EVENING, HOME MEDS WERE RESUMED. PT STILL HAVING PAIN AND VERY SMALL PO INTAKE. IVF DC'D PER MD ORDER. BG HAS BEEN ON THE LOW END AND NO SHORT ACTING INSULIN WAS REQUIRED. PT IN THE BED, CALL LIGHT IN REACH, SHE DOES CALL APPROPRIATELY. NO CURRENT S&S OF DISTRESS.
[2023-10-23 20:18] VITALS: BP 152/87
[2023-10-23] MEDS ORDERED: Sertraline HCl 50 MG Tab PO SCH (21:00)
[2023-10-23] MEDS ORDERED: Gabapentin 300 MG Cap PO SCH (21:00)
[2023-10-24 03:43] VITALS: BP 147/83
[2023-10-24] MEDS ORDERED: Levothyroxine Sodium 0.15 MG Tab PO SCH (06:00)
[2023-10-24 07:18] VITALS: BP 142/86
--- NOTE | 2023-10-24 07:42 | NUR ---
SHIFT SUMMARY PT IS A&OX4, NO ACUTE CHANGES OR EVENTS THIS SHIFT. VSS ON RA. BG AT HS WAS 190, SO PT AND THIS RN DECIDED TO ONLY GIVE 3 UNITS OF GLARGINE INSTEAD OF SCHEDULED 6 UNITS. BG DID NOT DROP ALOT THROUGH THE NOC. PT SLEPT WELL. MEDICATED FOR ABD PAIN TWICE. STILL NEEDING THE ANTINAUSEA MEDICATION FREQUENTLY. UP AD [place] IN ROOM/BR. HAVING BM'S THIS MORNING. BED IN LOWEST POSITION, CALL LIGHT WITHIN REACH.
[2023-10-24] MEDS ORDERED: Cholecalciferol 1000 Unit Tablet (=25MCG) PO SCH (09:00)
[2023-10-24] MEDS ORDERED: Insulin Glargine-Yfgn 100 Unit/mL 3 ML SYR SC SCH (09:00)
[2023-10-24] MEDS ORDERED: Estradiol 1 MG Tab PO SCH (09:00)
[2023-10-24] MEDS ORDERED: ERYTHROMYCIN250 M1 PO (11:42)
[2023-10-24] MEDS ORDERED: VISBIOME 112.51 EACH PO (11:43)
[2023-10-24] MEDS ORDERED: PROM25 PO (11:43)
--- NOTE | 2023-10-24 12:06 | NUR ---
DISCHARGE NOTE- PT WAS GIVEN VERBAL AND WRITTEN DISCHARGE INSTRUCTIONS AND ACKNOWLEDGED UNDERSTANDING OF THEM. SHE CALLED HER AND HE IS COMING TO PICK HER UP. PG STILL IN PLACE IN [place] WILL DC CLOSER TO DC TIME, PT WILL BE ESCORTED OUT VIA WC WHEN HER RIDE ARRIVES. PT IN BED, CALL LIGHT IN REACH NO S&S OF DISTRESS AT THIS TIME.
== END 2023-10-24 13:33 | disposition home or self-care (01) | DRG 638 ==
LOC: ER 18:35 → ICUE 18:36 → MEDS 10-19 16:18 → ICUE 10-19 20:53 → MEDS 10-19 22:29 → ENPENDDIS 10-24 10:47 → MEDS 10-24 13:33
PROVIDERS: Emergency Medicine; Internal Medicine; Nurse Practitioner; ADMIT Student in an Organized Health Care Education/Training Program
DX: E10.10 Type 1 diabetes mellitus with ketoacidosis without coma (principal); N17.9 Acute kidney failure, unspecified; E10.43 Type 1 diabetes mellitus with diabetic autonomic (poly)neuropathy; K31.84 Gastroparesis; E10.22 Type 1 diabetes mellitus with diabetic chronic kidney disease; E87.6 Hypokalemia; E83.42 Hypomagnesemia; F32.A Depression, unspecified; N18.30 Chronic kidney disease, stage 3 unspecified; F17.210 Nicotine dependence, cigarettes, uncomplicated; E03.9 Hypothyroidism, unspecified; Z90.49 Acquired absence of other specified parts of digestive tract; Z88.8 Allergy status to other drugs, medicaments and biological substances; Z91.040 Latex allergy status; Z88.2 Allergy status to sulfonamides; Z88.1 Allergy status to other antibiotic agents; Z79.4 Long term (current) use of insulin; Z79.890 Hormone replacement therapy; Z79.899 Other long term (current) drug therapy; Z90.710 Acquired absence of both cervix and uterus
CPT/HCPCS: 74176; 74177; 80047; 80048; 80053; 81001; 82010; 82570; 82803; 82947; 83690; 83735; 84300; 85014; 85025; 87086; 96361; 96372; 96374; 96375; 96376; 99285-25; A9270; C1751; G0378; J1650; J1815; J2060; J2405; J3010; J3475; J3480; J7030; J7042; J7050; J7120; Q9967

== ENCOUNTER 2024-06-03 08:06 | Inpatient (IN) | payer OTHER ==
[~2024-06-03] VITALS: Ht 154.9 cm; Wt 57.0 kg
[~2024-06-03 08:06] MED LIST changes: +DRIZALMA SPRINK40 MG PO; +DULOXETINE HCL60 M1 PO; +ERYTHROMYCIN250 M1 PO; +GLUCAGON SC; +INSULIN LI100 UNIT/6 SC; +LORAZEPAM0.5 MG PO; +Loratadine10 MG PO; +VITAMIN D5000 UNIT PO
[2024-06-03 08:31] LABS: Base Excess Venous -9.7 mmol/L; Bicarbonate Venous 17.9 mmol/L (24.0-30.0); PCO2 Venous 25.2 mmHg (38-42); pH Blood Venous 7.39 (7.34-7.37)
[2024-06-03 08:34] LABS: BASOPHILS ABSOLUTE AUTO 0.08 K/mm3 (0.00-0.23); BASOPHILS PERCENT AUTO 1 % (0-2); EOSINOPHILS ABSOLUTE AUTO 0.04 K/mm3 (0.00-0.68); EOSINOPHILS PERCENT AUTO 0 % (0-6); Hematocrit 32.3 % (33.0-51.0); Hemoglobin 11.1 g/dL (11.5-16.0); IMMATURE GRAN ABSOLUTE AUTO 0.04 K/mm3 (0.00-0.10); IMMATURE GRAN PERCENT AUTO 0 % (0-1); LYMPHOCYTES ABSOLUTE AUTO 1.96 K/mm3 (0.84-5.20); LYMPHOCYTES PERCENT AUTO 16 % (21-46); MONOCYTES ABSOLUTE AUTO 0.59 K/mm3 (0.16-1.47); MONOCYTES PERCENT AUTO 5 % (4-13); Mean Corpuscular HGB 30.5 pg (26.0-34.0); Mean Corpuscular HGB Conc 34.4 g/dL (31.5-36.5); Mean Corpuscular Volume 89 fL (80-100); Mean Platelet Volume 10.4 fL (9.1-12.4); NEUTROPHILS ABSOLUTE AUTO 9.23 K/mm3 (1.96-9.15); NEUTROPHILS PERCENT AUTO 77 % (41-73); Platelet Count 413 K/mm3 (150-400); RDW Coefficient Variation 11.5 % (11.7-14.2); Red Blood Cell Count 3.64 M/mm3 (3.80-5.20); White Blood Cell Count 11.94 K/mm3 (4.00-11.30)
[2024-06-03 08:56] LABS: Albumin, Blood 3.4 g/dL (3.4-5.0); Albumin/Globulin Ratio 0.7 (0.8-1.8); Beta-hydroxybutyrate 50.3 mg/dL (0.2-2.8); Bilirubin, Total 0.5 mg/dL (0.1-1.0); Bun/Creatinine Ratio 22.5 (12.0-20.0); Creatinine, Blood 1.69 mg/dL (0.40-1.00); Globulin, Blood 4.8 g/dL (2.2-4.0); Potassium, Blood 4.6 mmol/L (3.5-5.5); Total Protein, Blood 8.2 g/dL (6.4-8.2)
[2024-06-03] MEDS ORDERED: Insulin Human Regular 100 UNIT in NS 100 ML IV SCH (09:45)
[2024-06-03] MEDS ORDERED: Ondansetron HCl 2 MG / ML 2ML Vial IV ONE (09:45)
[2024-06-03] MEDS ORDERED: NS 1,000 ML IV SCH ×2 (09:50→12:35)
[2024-06-03 10:01] LABS: Source, Urine Clean Catch
[2024-06-03 10:07] LABS: Bilirubin, Urine Neg (Neg); Blood, Urine Neg (Neg); Glucose Qualitative, Urine 4+ (Neg); Ketones, Urine 3+ (Neg); Leukocyte Esterase, Urine Neg (Neg); Nitrite, Urine Neg (Neg); Protein, Urine 3+ (Neg); Urobilinogen, Urine NORM (Normal)
[2024-06-03 10:12] LABS: Appearance, Urine Hazy (Clear); Color, Urine Yellow (P-Yellow); Red Blood Cells, Urine Not Seen /hpf (0-2); White Blood Cells, Urine Not Seen /hpf (0-5)
[2024-06-03 10:13] LABS: Bacteria Rare /hpf; Squamous Epithelial Cells Mod /hpf (Few)
[2024-06-03] MEDS ORDERED: Crestor40 MG PO (11:05)
[2024-06-03] MEDS ORDERED: EUTHYROX137 MC1 PO (11:05)
[2024-06-03 11:07] LABS: Influenza A, PCR NEGATIVE (NEGATIVE); Influenza B, PCR NEGATIVE (NEGATIVE); Resp Syncytial Virus, PCR NEGATIVE (NEGATIVE); SARS-Cov-2 (COVID-19) PCR, MMC NEGATIVE (NEGATIVE)
[2024-06-03] MEDS ORDERED: Acetaminophen 500 MG Tab PO ONE (12:25)
[2024-06-03] MEDS ORDERED: Insulin Regular 100 Unit/ML 1ML Dose SC ONE (12:30)
[2024-06-03] MEDS ORDERED: Ondansetron HCl 2 MG / ML 2ML Vial IV PRN (12:35)
[2024-06-03] MEDS ORDERED: NS 2,000 ML IV ONE (12:55)
[2024-06-03] MEDS ORDERED: FLU VACC TS2024-25(6MOS UP)/PF 45 MCG/0.5 ML SYRINGE IM SCH (12:55)
[2024-06-03] MEDS ORDERED: Loratadine 10 MG Tab PO PRN (15:05)
[2024-06-03] MEDS ORDERED: Cyclobenzaprine HCl 10 MG Tab PO PRN (15:05)
[2024-06-03] MEDS ORDERED: Calcium Carbonate 500 MG Tab Chew PO PRN (15:10)
[2024-06-03] MEDS ORDERED: Promethazine HCl 25 MG Tab PO PRN (15:10)
[2024-06-03] MEDS ORDERED: LORazepam 0.5 MG Tab PO PRN (15:10)
[2024-06-03] MEDS ORDERED: Insulin Human Lispro 100 Units/ML 3ML Syringe SC SCH (16:00)
[2024-06-03] MEDS ORDERED: Pantoprazole Sodium 40 MG Injection IV SCH (16:16)
[2024-06-03 17:16] LABS: Albumin, Blood 2.6 g/dL (3.4-5.0); Anion Gap 14 mmol/L (3-11); Blood Urea Nitrogen 26 mg/dL (8-24); Bun/Creatinine Ratio 20.2 (12.0-20.0); CO2, Blood 17 mmol/L (21-32); Calcium, Blood 8.3 mg/dL (8.5-10.1); Chloride, Blood 113 mmol/L (98-108); Creatinine, Blood 1.29 mg/dL (0.40-1.00); Glomerular Filtration Rate 52 (60-); Glucose, Blood 156 mg/dL (70-99); Phosphorus, Blood 2.6 mg/dL (2.5-4.9); Potassium, Blood 4.1 mmol/L (3.5-5.5); Sodium, Blood 140 mmol/L (136-145)
[2024-06-03] MEDS ORDERED: CODACE30 PO (17:24)
[2024-06-03] MEDS ORDERED: LIDOCAINE 2% PO (17:29)
[2024-06-03] MEDS ORDERED: TRAZ50 PO (17:34)
[2024-06-03] MEDS ORDERED: PERIDEX15 ML (17:37)
[2024-06-03 17:46] VITALS: BP 149/85
--- NOTE | 2024-06-03 18:09 | NUR ---
SHIFT SUMMARY PT AO4, COOPERATIVE, ABLE TO MAKE NEEDS KNOWN. ARRIVED TO ROOM AT 1705. SKIN CHECK PERFORMED BY ROSINA RN AND GURVINDER WATERS. HOME MEDS REVIEWED BY PHARMACIST. PT ARRIVED NPO ON NS 150ML/HR. BLOOD SUGAR CHECKED Q4HRS. BED IN LOWEST POSITION, CALL LIGHT WITHIN REACH.
[2024-06-03] MEDS ORDERED: Mag Sulfate 1 GM/D5% 100ML 100 ML IV ONE (18:45)
--- NOTE | 2024-06-03 18:46 | NUR ---
RECIEVED A CALL FROM DR ANDUJAR- INQUIRED ABOUT RECENT LABS. ORDERED 1G IV MAG NOW. PLACED ORDER IN ORDER MANAGEMENT.
--- NOTE | 2024-06-03 19:20 | NUR ---
THIS BLENDING MACHINE FEEDER CONTACTED ON-CALL HOSPITALIST TOY D/T PT C/O 01/25 ABDOMINAL PAIN. PT IS NPO, ADMITTED TODAY. PT C/O NAUSEA. PT REPORTS N/V PAST THREE DAYS, VOMITING >10 X DAY . PER TOY, HE WILL PUT AN ORDER IN FOR PAIN MEDICATION.
[2024-06-03] MEDS ORDERED: Morphine Sulfate 4 MG/1 ML Injection IV PRN (19:25)
[2024-06-03 20:00] VITALS: BP 167/90
--- NOTE | 2024-06-03 20:40 | NUR ---
PT NOT ABLE TO TAKE PO MEDS AT HS DT N/V. THIS FREIGHT DISPATCHER CONTACTED DRIVER SALESMAN HOSPITALIST FLO. HE IS NOTIFIED.TANK FARM OPERATOR NOTIFIED.
[2024-06-03] MEDS ORDERED: NS 250 ML IV PRN (20:45)
[2024-06-03] MEDS ORDERED: Insulin Glargine-Yfgn 100 Unit/mL 3 ML SYR SC SCH (21:00)
[2024-06-03] MEDS ORDERED: Metoclopramide HCl 5MG / ML 2ML Vial IV ONE (21:00)
[2024-06-03] MEDS ORDERED: Gabapentin 300 MG Cap PO SCH (21:00)
[2024-06-03] MEDS ORDERED: Lactobacil 2-S.Thermo-Bifido 1 1 Cap PO SCH (21:00)
[2024-06-03 21:35] LABS: Bun/Creatinine Ratio 17.9 (12.0-20.0); Calcium, Blood 8.6 mg/dL (8.5-10.1); Creatinine, Blood 1.23 mg/dL (0.40-1.00); Potassium, Blood 4.7 mmol/L (3.5-5.5)
[2024-06-04 01:08] VITALS: BP 158/89
--- NOTE | 2024-06-04 04:39 | NUR ---
SHIFT SUMMARY PT IS AO X4, ABLE TO MAKE HER NEEDS KNOWN, COOPERATIVE WITH CARE. PT C/O 8/10 ABDOMINAL PAIN. NEW ORDER FOR MORPHINE IV 2MG Q4 RECEIVED AND ADMINISTERED T/O THIS SHIFT. PT REPORT EFFECTIVE. PT HAS N/V, MODERATE AMOUNT OF EMESIS. PT APPEARS VERY UNCOMFORTABLE. PT REQUESTED BEDPAN AND HAD A FEW HARD, SMALL STOOLS. PT C/O CONSTIPATION. PT REFUSED ALL HS PO MEDICATIONS AND 0600 LEVOTHYROXINE. PT IS NPO, HAD A FEW ICE CHIPS. Q4HR CBG: @HS 243, @MIDNIGHT: 346, AND AT .420: 246. HUMALOG ADMINISTERED ORDERED. 2/2 BAG OF NS INFUSING ORDERED. NO ACUTE EVENTS DURING THIS SHIFT. BED AT THE LOWEST POSITION, CALL LIGHT WITHIN REACH. PT REPORTS ALLERGIES TO ANTIEMETICS. ZOFRAN FOR NAUSEA WITH MILD EFFECTIVNESS.
[2024-06-04 05:02] LABS: Hematocrit 27.8 % (33.0-51.0); Hemoglobin 9.2 g/dL (11.5-16.0); Mean Corpuscular HGB 30.4 pg (26.0-34.0); Mean Corpuscular HGB Conc 33.1 g/dL (31.5-36.5); Mean Corpuscular Volume 92 fL (80-100); Mean Platelet Volume 10.5 fL (9.1-12.4); Platelet Count 315 K/mm3 (150-400); RDW Coefficient Variation 11.9 % (11.7-14.2); Red Blood Cell Count 3.03 M/mm3 (3.80-5.20); White Blood Cell Count 12.84 K/mm3 (4.00-11.30)
[2024-06-04 05:31] LABS: Bun/Creatinine Ratio 17.2 (12.0-20.0); Creatinine, Blood 1.22 mg/dL (0.40-1.00); Potassium, Blood 4.6 mmol/L (3.5-5.5)
[2024-06-04] MEDS ORDERED: Levothyroxine Sodium 0.137 MG Tab PO SCH (06:00)
[2024-06-04 07:24] VITALS: BP 147/88
[2024-06-04] MEDS ORDERED: NS 2,000 ML IV STA (08:06)
[2024-06-04] MEDS ORDERED: Promethazine HCl 25 MG Supp PR PRN (08:10)
[2024-06-04] MEDS ORDERED: Rosuvastatin Calcium 10 MG Tab PO SCH (09:00)
[2024-06-04] MEDS ORDERED: DULoxetine HCL 60 MG Capsule DR PO SCH (09:00)
[2024-06-04] MEDS ORDERED: Enoxaparin 40 MG/0.4 ML SYR SC SCH (09:00)
[2024-06-04] MEDS ORDERED: Cholecalciferol 1000 Unit Tablet (=25MCG) PO SCH (09:00)
[2024-06-04] MEDS ORDERED: Insulin Glargine-Yfgn 100 Unit/mL 3 ML SYR SC SCH (09:00)
[2024-06-04] MEDS ORDERED: Estradiol 1 MG Tab PO SCH (09:00)
[2024-06-04] MEDS ORDERED: Azithromycin 250 MG Tab PO SCH (10:17)
[2024-06-04 11:41] LABS: Albumin, Blood 2.7 g/dL (3.4-5.0); Anion Gap 17 mmol/L (3-11); Blood Urea Nitrogen 16 mg/dL (8-24); Bun/Creatinine Ratio 14.3 (12.0-20.0); CO2, Blood 11 mmol/L (21-32); Calcium, Blood 8.2 mg/dL (8.5-10.1); Chloride, Blood 117 mmol/L (98-108); Creatinine, Blood 1.12 mg/dL (0.40-1.00); Glomerular Filtration Rate 62 (60-); Glucose, Blood 163 mg/dL (70-99); Magnesium, Blood 1.7 mg/dL (1.6-2.4); Phosphorus, Blood 1.9 mg/dL (2.5-4.9); Potassium, Blood 4.3 mmol/L (3.5-5.5); Sodium, Blood 141 mmol/L (136-145)
[2024-06-04] MEDS ORDERED: NS 1,000 ML IV SCH ×2 (13:25→13:30)
[2024-06-04] MEDS ORDERED: Potassium Phosphate Dibasic 30 MM in Dextrose 5% 500 ML IV STA (13:25)
[2024-06-04] MEDS ORDERED: Sodium Phosphate 30 MM in Dextrose 5% 500 ML IV STA (13:30)
[2024-06-04] MEDS ORDERED: Dextrose 50% 50 ML Vial IV PRN (14:30)
--- NOTE | 2024-06-04 14:40 | NUR ---
CALLED DR ANDUJAR- PT HAS BEEN LETHARGIC SINCE THE START OF THE SHIFT, ASKING FOR A BED DURANT RATHER THAN GETTING OOB FOR ELIMINATION NEEDS. PT VOMITING AND DRY HEAVING. MD AWARE 2L BOLUS GIVEN THIS AM AT THE COMPLETION OF THE 2L NS AT 150ML. LABS CHECKED AFTER THE BOLUS, NEW 2L IVF BOLUS STARTED STAT. AFTER THE FIRST 1L NS HER CBG MONITOR BEGAN TO ALERT LOW BG, BG CHECK SHOWS 102, MONITOR STARTING TO ALERT TO LOW, RECHECKED 20 MIN LATER SHOWS 93. CTM. THIS RN AT THE BEDSIDE, FOR PT SAFETY. REQUESTED TRANSFER TO PCU THE PT IS BECOMING MORE LETHARGIS BG DROPPING WITH THE CONTINUED FLUID BOLUS. SPOKE TO DR ANDUJAR NO NEW ORDERS AT THIS TIME. SOD PHOS UNABLE TO START THE PT DOES NOT HAVE IV ACCESS. ATTEMPTS TO GAIN ADDITIONAL IV ACCESS HAVE FAILED. SHEET CUTTER IS PRESENT TO ATTEMPT PG PLACEMENT.
[2024-06-04 14:45] VITALS: BP 160/98
[2024-06-04] MEDS ORDERED: LORazepam 2 MG/ML 1ML Injection IV PRN (15:40)
[2024-06-04] MEDS ORDERED: Insulin Human Lispro 100 Units/ML 3ML Syringe SC SCH (16:00)
[2024-06-04 17:17] LABS: Bun/Creatinine Ratio 12.6 (12.0-20.0); Calcium, Blood 7.9 mg/dL (8.5-10.1); Creatinine, Blood 1.03 mg/dL (0.40-1.00); Potassium, Blood 3.9 mmol/L (3.5-5.5)
--- NOTE | 2024-06-04 18:12 | NUR ---
SHIFT SUMMARY- PT CONTINUES TO BE LETHARGIC, BUT APPEARS TO BE IMPROVED SLIGHTLY FROM 1300. SHE DENIES PAIN, EXCEPT FOR THE SEVEN SPOTS THAT IV'S WERE ATTEMPTED. PG FINALLY ESTABLISHED LATER IN THE EVENING. PG IS CURRENTLY RUNNING SODD PHOS AND NS AT 200ML/HR. IV FLUIDS TO CONTINUE T/O THE NIGHT. BG CHECKS AND INSULIN CONTINUE TO BE REQUIRED Q4, SPOKE TO DR ABOUT THE PT TRANSFERING TO PCU FOR CLOSER MONITORING, PT REMAINS MEDICAL FLOOR STATUS AT THIS TIME. PT IN BED, USING THE BED DURANT FOR VOIDS, SHE HAS RECIEVED 5L OF IV FLUIDS THIS SHIFT. WELL 12.5G OF D50 FOR HYPOGLYCEMIA. Q4 NAUSEA MEDS WORK IF THE PT RECIEVES THE IV ZOFRAN FIRST THEN THE PO PHENEGREN. IV ATIVAN REALLY SETTLED THE PT NAUSEA A LOT, AND HELPED TO CALM THE PT. PT CURRENTLY IN BED, CALL LIGHT IN REACH SHE CALLS APPROPRIATELY, NO S&S OF DISTRESS NOTED. MEDICATING WITH IV ZOFRAN TO PREVENT HER FROM BECOMING SICK AGAIN.
[2024-06-04] MEDS ORDERED: Sodium Bicarb 8.4% Inj 50 MEQ in Sodium Chloride 0.45% 1,000 ML IV SCH (18:30)
[2024-06-04 19:24] VITALS: BP 143/91
[2024-06-04] MEDS ORDERED: GABA100 PO (20:15)
[2024-06-04] MEDS ORDERED: ZOLOFT50 MG PO (20:16)
[2024-06-04] MEDS ORDERED: MIRALAX11914 PO (20:17)
[2024-06-04] MEDS ORDERED: KLONOPIN0.5 M9 PO (20:18)
[2024-06-04] MEDS ORDERED: DULOXETINE HCL40 M1 PO (20:20)
[2024-06-04] MEDS ORDERED: INSULIN LI100 UNIT/6 SC (20:28)
[2024-06-04] MEDS ORDERED: INSULIN AS100 UNIT/8 SC (20:30)
[2024-06-04] MEDS ORDERED: INSULIN GL100 UNIT/2 SC (20:32)
[2024-06-04] MEDS ORDERED: LIDOCAINE 2% MM (20:38)
[2024-06-04] MEDS ORDERED: PAROEX473 ML MM (20:40)
[2024-06-04] MEDS ORDERED: CODACE30 PO (20:41)
--- NOTE | 2024-06-04 23:16 | NUR ---
CONTACT ISOLATION/GI PANEL ORDERS DISCONTINUED. THIS COMMISSARY REPRESENTATIVE CALLED ON-CALL HOSPITALIST AND REQUESTED DISCONTINUATION TO THE ORDERS D/T PT CONTINUES TO HAVE CONSTIPATION, NO LOOSE STOOL OR DIARRHEA REPORTED PER PT AND PER OUTPUT MEASUREMENTS. D/C ORDER RECEIVED AND ENTERED TO Shnergle. DIRECTOR ADVANCED NOTIFIED.
[2024-06-04 23:30] LABS: Albumin, Blood 2.5 g/dL (3.4-5.0); Anion Gap 15 mmol/L (3-11); Blood Urea Nitrogen 10 mg/dL (8-24); Bun/Creatinine Ratio 9.3 (12.0-20.0); CO2, Blood 17 mmol/L (21-32); Calcium, Blood 7.7 mg/dL (8.5-10.1); Chloride, Blood 114 mmol/L (98-108); Creatinine, Blood 1.08 mg/dL (0.40-1.00); Glomerular Filtration Rate 65 (60-); Glucose, Blood 181 mg/dL (70-99); Phosphorus, Blood 3.6 mg/dL (2.5-4.9); Potassium, Blood 3.5 mmol/L (3.5-5.5); Sodium, Blood 142 mmol/L (136-145)
--- NOTE | 2024-06-05 03:43 | NUR ---
SHIFT SUMMARY NO ACUTE EVENTS DURING THIS SHIFT. NO VOMITING, SLIGHLY NAUSEATED AT HS. PRN ZOFRAN IV AND PRN IV MORPHINE ADMINISTERED ORDERED FOR C/O 7/10 ABDOMINAL PAIN. PT REPORTS EFFECTIVE. PT REQUESTING GINGERALE, PT IS ON CLEAR LIQUID DIET. PT REPORTS GINGERALE WOULD HELP FOR BELCHING. OFFERED SPRITE TO THE PT. PT REFUSED ALL HS SCHEDULED PO MEDICATIONS D/T NAUSEA. SODIUM BICARB INFUSING ORDERED. PT USING BEDPAN TO VOID. REPORTS TOO WEAK TO SBA TO COMMODE AT THIS TIME. POWERGLIDE ON SATHYA, DRAWS. BED AT THE LOWEST POSITION, CALL LIGHT WITHIN REACH. PT IS ABLE TO MAKE HER NEEDS KNOWN, AND IS COOPERATIVE WITH CARE.
[2024-06-05 04:08] VITALS: BP 142/79
[2024-06-05 05:15] LABS: Mean Corpuscular HGB Conc 34.8 g/dL (31.5-36.5); Mean Corpuscular Volume 89 fL (80-100); Mean Platelet Volume 9.7 fL (9.1-12.4); Platelet Count 258 K/mm3 (150-400); RDW Coefficient Variation 11.9 % (11.7-14.2); RDW Standard Deviation 38.1 fL (35.1-46.3); Red Blood Cell Count 2.58 M/mm3 (3.80-5.20)
[2024-06-05 05:48] LABS: Albumin, Blood 2.3 g/dL (3.4-5.0); Anion Gap 14 mmol/L (3-11); Blood Urea Nitrogen 8 mg/dL (8-24); Bun/Creatinine Ratio 7.8 (12.0-20.0); CO2, Blood 17 mmol/L (21-32); Calcium, Blood 7.8 mg/dL (8.5-10.1); Chloride, Blood 114 mmol/L (98-108); Creatinine, Blood 1.03 mg/dL (0.40-1.00); Glomerular Filtration Rate 68 (60-); Glucose, Blood 129 mg/dL (70-99); Magnesium, Blood 1.3 mg/dL (1.6-2.4); Phosphorus, Blood 2.5 mg/dL (2.5-4.9); Potassium, Blood 3.2 mmol/L (3.5-5.5); Sodium, Blood 142 mmol/L (136-145)
--- NOTE | 2024-06-05 06:05 | NUR ---
@0545 PT C/O A SUDDEN, SHARP RIGHT FLANK PAIN RATING 8/10. REPOSITIONED, NOT EFFECTIVE. HEATING PAD APPLIED, AND PRN MORPHINE IV 2MG ADMINISTERED ORDERED. WILL PASS THIS INFORMATION TO THE INCOMING SHIFT NURSE.
[2024-06-05 07:41] VITALS: BP 138/76
[2024-06-05] MEDS ORDERED: Potassium Phosphate Dibasic 30 MM in Dextrose 5% 500 ML IV STA (07:46)
[2024-06-05] MEDS ORDERED: Sodium Bicarb 8.4% Inj 50 MEQ in Sodium Chloride 0.45% 1,000 ML IV SCH (07:50)
[2024-06-05] MEDS ORDERED: Magnesium Sulf 2 GM/Water 50ML 50 ML IV ONE (07:50)
[2024-06-05] MEDS ORDERED: Furosemide 10 MG/ML 4ML Vial IV STA (10:07)
[2024-06-05] MEDS ORDERED: Potassium Chloride 20 MEQ/15 ML UDC PO SCH (11:00)
[2024-06-05 12:00] LABS: Source, Urine Foley catheter
[2024-06-05 12:42] LABS: Appearance, Urine Clear (Clear); Bilirubin, Urine Neg (Neg); Blood, Urine Neg (Neg); Glucose Qualitative, Urine 3+ (Neg); Ketones, Urine 2+ (Neg); Leukocyte Esterase, Urine Neg (Neg); Nitrite, Urine Neg (Neg); Protein, Urine 2+ (Neg); Specific Gravity, Urine 1.015 (1.003-1.022); Urobilinogen, Urine NORM (Normal)
[2024-06-05 13:29] LABS: Color, Urine Pale Yellow (P-Yellow); Red Blood Cells, Urine 0-2 /hpf (0-2); White Blood Cells, Urine 0-2 /hpf (0-5)
[2024-06-05 13:30] LABS: Bacteria Rare /hpf; Squamous Epithelial Cells Few /hpf (Few); Transitional Epithelial Cells Rare /hpf (0-Rare)
[2024-06-05 15:23] VITALS: BP 144/81
[2024-06-05 15:25] LABS: Bun/Creatinine Ratio 6.2 (12.0-20.0); Creatinine, Blood 1.13 mg/dL (0.40-1.00); Potassium, Blood 3.7 mmol/L (3.5-5.5)
[2024-06-05] MEDS ORDERED: Insulin Human Lispro 100 Units/ML 3ML Syringe SC SCH ×2 (16:30→17:30)
[2024-06-05] MEDS ORDERED: Furosemide 10 MG / ML 2ML Vial IV STA (16:45)
[2024-06-05] MEDS ORDERED: Potassium Chloride 20 MEQ/15 ML UDC PO STA (16:46)
[2024-06-05] MEDS ORDERED: Potassium Chloride 10 Meq Tablet SA PO ONE (19:05)
--- NOTE | 2024-06-05 19:51 | NUR ---
SHIFT SUMMARY PATIENT WOKE UP EDEMATOUS, TEARFUL AND ANXIOUS FROM STATE OF CURRENT ILLNESS. REPORTS TOO MUCH FLUIDS WERE GIVEN OVER [address] ANDUJAR ORDERED MAG AND POTASSIUM REPLACEMENTS. MAG WAS GIVEN IV AND POTASSIUM PHOSPHATE WAS STARTED BUT NOT COMPLETED BEFORE DC'D AND PATIENT GIVEN THE CHAGNE TO TAKE POTASSIUM CHLORIDE LIQUID, WAS ONLY ABLE TO KEEP DOWN 1 20 MEQ DOSE. IV LASIX WAS ORDERED WELL PELAYO FOR RETENTION. PATIENT NAUSEAS AND GIVEN IV ZOFRAN AND PO PHENERGAN. PT WAS ALSO ABLE TO TAKE HOME ERYTHROMYCIN PO. HAS NOT VOMITED TDOAY, TOOK A COUPLE BITES OF MASHED POTATOES FOR DINNER. DRINKING GATORADE AND AUDREY JENNIFER TO ENCOURAGE BELCHING. ABLE TO MAKE NEEDS KNOWN. PRN MORPHINE GIVEN TWICE FOR ACUTE ABD/R FLANK PAIN WITH REPORTED RELIEF.
[2024-06-05 20:59] VITALS: BP 145/82
[2024-06-05] MEDS ORDERED: Insulin Glargine-Yfgn 100 Unit/mL 3 ML SYR SC SCH (21:00)
--- NOTE | 2024-06-06 01:43 | NUR ---
pT CONCERNED ABOUT cbg, HIGH AT 370, NOTIFIED, WILL MONITOR PT, NO ORDERS AT THIS TIME
[2024-06-06 03:28] VITALS: BP 154/79
--- NOTE | 2024-06-06 05:51 | NUR ---
Pt continues to have pain medicated with morphine IVP 2mg, remains nautious intermitently, and was medicated with phenergan PO x1. VS WNL, PO intake of crackers and jellow, and gingerale. ibarra output WNL. CBG high at 276 given 6 units of lantus, Pt requested CBG check at approx. 0100 was 364, notified.
[2024-06-06 06:31] LABS: Albumin, Blood 2.3 g/dL (3.4-5.0); Anion Gap 13 mmol/L (3-11); Blood Urea Nitrogen 8 mg/dL (8-24); Bun/Creatinine Ratio 7.1 (12.0-20.0); CO2, Blood 21 mmol/L (21-32); Calcium, Blood 8.2 mg/dL (8.5-10.1); Chloride, Blood 105 mmol/L (98-108); Creatinine, Blood 1.12 mg/dL (0.40-1.00); Glomerular Filtration Rate 62 (60-); Glucose, Blood 321 mg/dL (70-99); Magnesium, Blood 1.4 mg/dL (1.6-2.4); Phosphorus, Blood 2.2 mg/dL (2.5-4.9); Potassium, Blood 3.4 mmol/L (3.5-5.5); Sodium, Blood 136 mmol/L (136-145)
[2024-06-06 07:46] VITALS: BP 128/86
[2024-06-06] MEDS ORDERED: Mag Sulfate 1 GM/D5% 100ML 100 ML IV STA (07:54)
[2024-06-06] MEDS ORDERED: Potassium Phosphate Dibasic 15 MM in Dextrose 5% 250 ML IV STA (07:54)
[2024-06-06] MEDS ORDERED: Insulin Human Lispro 100 Units/ML 3ML Syringe SC SCH (08:00)
[2024-06-06 16:40] VITALS: BP 139/88
--- NOTE | 2024-06-06 17:55 | NUR ---
SHIFT SUMMARY PT A&Ox4, CALLS AND COMMUNICATES NEEDS APPROPRIATELY. IND IN ROOM. NO C/O PAIN. BP ELEVATED, PHYSICIAN NOTIFIED, NO NEW ORDERS. PT NOT ON TELE. DENIES CP/PRESSURE. SpO2> 92%, DENIES SOB. LLE DRESSING C/D/I. CBG ELEVATED THROUGHOUT SHIFT, PHYSICIAN NOTIFIED, NO NEW ORDERS. NO OTHER EVENTS, WILL REPORT TO ONCOMING RN.
--- NOTE | 2024-06-06 18:01 | NUR ---
SHIFT SUMMARY PT VERY UPSET AT START OF SHIFT REGARDING THE CARE THAT THEY HAVE RECEIVED. THIS RN AND PT HAD A THOROUGH DISCUSSION ABOUT GOALS OF CARE AND HOW WE CAN BETTER PROVIDE FOR THEM. PT CALM AND COOPERATIVE WHEN DISCCUSION WAS OVER. PT A&OX4, CALLS AND COMMUNICATES NEEDS APPROPRIATELY. BP STABLE, SINUS 90's w/ PVCs, DENIES CP/PRESSURE. SpO2> 92% RA, DENIES SOB. IND IN ROOM. PELAYO CATH REMOVED. MANAGED PTs PAIN PER EMAR. PT NONCOMPLIANT WITH ADA/CONSISTANT CARB DIET, CBGs HAVE BEEN ELEVATED, PHYSICIAN AWARE. NO OTHER EVENTS, WILL REPORT TO ONCOMING RN.
[2024-06-06 20:15] VITALS: BP 116/77
[2024-06-07 06:07] VITALS: BP 136/83
[2024-06-07 06:47] LABS: Albumin, Blood 2.4 g/dL (3.4-5.0); Anion Gap 8 mmol/L (3-11); Blood Urea Nitrogen 6 mg/dL (8-24); Bun/Creatinine Ratio 5.4 (12.0-20.0); CO2, Blood 26 mmol/L (21-32); Calcium, Blood 8.6 mg/dL (8.5-10.1); Chloride, Blood 108 mmol/L (98-108); Creatinine, Blood 1.12 mg/dL (0.40-1.00); Glomerular Filtration Rate 62 (60-); Glucose, Blood 159 mg/dL (70-99); Magnesium, Blood 1.6 mg/dL (1.6-2.4); Phosphorus, Blood 2.4 mg/dL (2.5-4.9); Potassium, Blood 3.8 mmol/L (3.5-5.5); Sodium, Blood 138 mmol/L (136-145)
[2024-06-07 07:15] VITALS: BP 130/81
[2024-06-07] MEDS ORDERED: Insulin Glargine-Yfgn 100 Unit/mL 3 ML SYR SC SCH (08:00)
[2024-06-07] MEDS ORDERED: Potassium Phosphate,Monobasic 500 MG Tablet PO ONE (11:00)
[2024-06-07] MEDS ORDERED: ONDA4 PO (12:16)
--- NOTE | 2024-06-07 13:39 | NUR ---
PATIENT DISCHARGED PRIOR TO INSULIN ADMINISTRATION, DID NOT ELECT TO STAY FOR ADMINISTRATION, WILL TAKE AT HOME.
--- NOTE | 2024-06-07 14:19 | NUR ---
SHIFT SUMMARY CONTACTED DR GREEN REGARDING PATIENT REQUEST FOR HOME SCRIPT OF PAIN MEDS, DOC DECLINED THIS REQUEST, STATING NARCOTICS WOULD ULTIMATELY CAUSE WORSE SYMPTOMS, PATIENT ACCEPTING THIS ANSWER. POWERGLIDE REMOVED WITHOUT COMPLICATION. DISCHARGE PACKET GIVEN AND REVIEWED, QUESTIONS ANSWERED, VERBALIZED UNDERSTANDING. DISCHARGED HOME WITH TO DRIVE.
== END 2024-06-07 13:33 | disposition home or self-care (01) | DRG 391 ==
LOC: ER 08:06 → ERHOLD 08:07 → MEDS 17:05 → ENPENDDIS 06-07 11:20 → MEDS 06-07 13:33
PROVIDERS: Emergency Medicine; Family Medicine; Nurse Practitioner Acute Care; Student in an Organized Health Care Education/Training Program; ADMIT Internal Medicine
DX: A08.4 Viral intestinal infection, unspecified (principal); E10.10 Type 1 diabetes mellitus with ketoacidosis without coma; E87.1 Hypo-osmolality and hyponatremia; N17.9 Acute kidney failure, unspecified; E10.43 Type 1 diabetes mellitus with diabetic autonomic (poly)neuropathy; K31.84 Gastroparesis; E10.22 Type 1 diabetes mellitus with diabetic chronic kidney disease; N18.30 Chronic kidney disease, stage 3 unspecified; K21.9 Gastro-esophageal reflux disease without esophagitis; E78.5 Hyperlipidemia, unspecified; E03.9 Hypothyroidism, unspecified; F32.A Depression, unspecified; F41.9 Anxiety disorder, unspecified; F43.10 Post-traumatic stress disorder, unspecified; K59.00 Constipation, unspecified; E10.40 Type 1 diabetes mellitus with diabetic neuropathy, unspecified; G89.29 Other chronic pain; E83.42 Hypomagnesemia; T73.0XXA Starvation, initial encounter; F17.210 Nicotine dependence, cigarettes, uncomplicated; E86.0 Dehydration; E83.39 Other disorders of phosphorus metabolism; E87.70 Fluid overload, unspecified; Z90.49 Acquired absence of other specified parts of digestive tract; Z90.710 Acquired absence of both cervix and uterus; Z79.4 Long term (current) use of insulin; Z88.2 Allergy status to sulfonamides; Z91.040 Latex allergy status; Z88.8 Allergy status to other drugs, medicaments and biological substances; Z88.1 Allergy status to other antibiotic agents; Z79.899 Other long term (current) drug therapy; Z79.890 Hormone replacement therapy; Z79.2 Long term (current) use of antibiotics; Z83.3 Family history of diabetes mellitus; Z98.890 Other specified postprocedural states
CPT/HCPCS: 0241U; 36415; 74177; 80048; 80053; 80069; 81001; 82010; 82803; 82947; 83735; 85025; 85027; 93005; 93010; 96361; 96374; 96375; 96376; 99285-25; A9270; C1751; G0378; J1650; J1815; J1940; J2060; J2270; J2405; J2470; J3475; J7030; J7050; J7060; J7799; Q9967

== ENCOUNTER → 2024-09-23 | Outpatient (CLI) | payer OTHER ==
[~2024-09-23] MED LIST changes: +CODACE30 PO; +Crestor40 MG PO; +DULOXETINE HCL40 M1 PO; +EUTHYROX137 MC1 PO; +GABA100 PO; +INSULIN AS100 UNIT/8 SC; +INSULIN GL100 UNIT/2 SC; +KLONOPIN0.5 M9 PO; +LIDOCAINE 2% MM; +LIDOCAINE 2% PO; +MIRALAX11914 PO; +PAROEX473 ML MM; +PERIDEX15 ML; +TRAZ50 PO; +ZOLOFT50 MG PO
[2024-09-23 19:11] LABS: Hematocrit 33.6 % (33.0-51.0); Hemoglobin 11.4 g/dL (11.5-16.0); Mean Corpuscular HGB 28.5 pg (26.0-34.0); Mean Corpuscular HGB Conc 33.9 g/dL (31.5-36.5); Mean Corpuscular Volume 84 fL (80-100); Mean Platelet Volume 10.6 fL (9.1-12.4); Platelet Count 395 K/mm3 (150-400); RDW Coefficient Variation 12.1 % (11.7-14.2); RDW Standard Deviation 37.1 fL (35.1-46.3)
[2024-09-23 19:15] LABS: Albumin, Blood 3.8 g/dL (3.4-5.0); Albumin/Globulin Ratio 0.9 (0.8-1.8); Bilirubin, Total 0.3 mg/dL (0.1-1.0); Bun/Creatinine Ratio 15.8 (12.0-20.0); Calcium, Blood 9.6 mg/dL (8.5-10.1); Creatinine, Blood 1.77 mg/dL (0.40-1.00); Globulin, Blood 4.3 g/dL (2.2-4.0); Phosphorus, Blood 3.4 mg/dL (2.5-4.9); Potassium, Blood 5.3 mmol/L (3.5-5.5); Total Protein, Blood 8.1 g/dL (6.4-8.2)
[2024-09-23 19:39] LABS: BASOPHILS ABSOLUTE MAN 0.08 K/mm3 (0.00-0.23); BASOPHILS PERCENT MAN 1 % (0-2); EOSINOPHILS PERCENT MAN 7 % (0-6); LYMPHOCYTES ABSOLUTE MAN 2.75 K/mm3 (0.84-5.20); LYMPHOCYTES PERCENT MAN 32 % (21-46); MONOCYTES ABSOLUTE MAN 0.51 K/mm3 (0.16-1.47); MONOCYTES PERCENT MAN 6 % (4-13); NEUTROPHILS ABSOLUTE MAN 4.64 K/mm3 (1.96-9.15); SEG NEUTROPHILS PERCENT MAN 54 % (41-73); TOTAL CELLS COUNTED 100
== END ==
LOC: LAB SHORT 17:35 → LAB 17:35
PROVIDERS: Nurse Practitioner
DX: E86.0 Dehydration (principal); R73.9 Hyperglycemia, unspecified
CPT/HCPCS: 80053; 83036; 84100; 85007; 85027

== ENCOUNTER 2025-02-05 12:47 | Observation (INO) | payer OTHER ==
[~2025-02-05] VITALS: Ht 160 cm; Wt 56.7 kg
[2025-02-05] MEDS ORDERED: NS 1,000 ML IV SCH (13:40)
[2025-02-05 14:00] LABS: BASOPHILS ABSOLUTE AUTO 0.09 K/mm3 (0.00-0.23); BASOPHILS PERCENT AUTO 1 % (0-2); EOSINOPHILS ABSOLUTE AUTO 0.33 K/mm3 (0.00-0.68); EOSINOPHILS PERCENT AUTO 4 % (0-6); Hematocrit 32.1 % (33.0-51.0); Hemoglobin 11.7 g/dL (11.5-16.0); IMMATURE GRAN ABSOLUTE AUTO 0.02 K/mm3 (0.00-0.10); IMMATURE GRAN PERCENT AUTO 0 % (0-1); LYMPHOCYTES ABSOLUTE AUTO 3.56 K/mm3 (0.84-5.20); LYMPHOCYTES PERCENT AUTO 43 % (21-46); MONOCYTES ABSOLUTE AUTO 0.61 K/mm3 (0.16-1.47); MONOCYTES PERCENT AUTO 7 % (4-13); Mean Corpuscular HGB Conc 36.4 g/dL (31.5-36.5); Mean Corpuscular Volume 83 fL (80-100); NEUTROPHILS ABSOLUTE AUTO 3.71 K/mm3 (1.96-9.15); NEUTROPHILS PERCENT AUTO 45 % (41-73); NRBC ABSOLUTE 0.00 K/mm3 (0.00-0.02); NRBC Auto 0.0 /100 WBC (0.0-0.2); Platelet Count 347 K/mm3 (150-400); RDW Coefficient Variation 11.6 % (11.7-14.2); RDW Standard Deviation 34.6 fL (35.1-46.3)
[2025-02-05 14:07] LABS: Alanine Aminotransfer (ALT/SGP 29.0 U/L (12-78); Albumin, Blood 3.7 g/dL (3.4-5.0); Albumin/Globulin Ratio 0.9 (0.8-1.8); Anion Gap 13.0 mmol/L (3-11); Aspartate Aminotrans (AST/SGOT 24.0 U/L (12-37); Bilirubin, Total 0.4 mg/dL (0.1-1.0); Blood Urea Nitrogen 35.0 mg/dL (8-24); CO2, Blood 19.0 mmol/L (21-32); Calcium, Blood 9.0 mg/dL (8.5-10.1); Chloride, Blood 99.0 mmol/L (98-108); Creatinine, Blood 2.4 mg/dL (0.40-1.00); Globulin, Blood 4.2 g/dL (2.2-4.0); Glucose, Blood 282.0 mg/dL (70-99); Potassium, Blood 6.3 mmol/L (3.5-5.5); Sodium, Blood 125.0 mmol/L (136-145); Total Protein, Blood 7.9 g/dL (6.4-8.2)
[2025-02-05 14:30] LABS: Influenza A, PCR NEGATIVE (NEGATIVE); Influenza B, PCR NEGATIVE (NEGATIVE); Resp Syncytial Virus, PCR NEGATIVE (NEGATIVE); SARS-Cov-2 (COVID-19) PCR, MMC NEGATIVE (NEGATIVE)
[2025-02-05] MEDS ORDERED: Furosemide 10 MG / ML 2ML Vial IV STA (15:18)
[2025-02-05] MEDS ORDERED: Insulin Regular 100 Unit/ML 1ML Dose IV STA (15:19)
[2025-02-05] MEDS ORDERED: NS 1,000 ML IV ONE (15:30)
[2025-02-05] MEDS ORDERED: Ondansetron 4 MG SoluTab MM PRN (16:25)
[2025-02-05 16:29] LABS: Albumin, Blood 3.8 g/dL (3.4-5.0); Anion Gap 16 mmol/L (3-11); Blood Urea Nitrogen 36 mg/dL (8-24); CO2, Blood 16 mmol/L (21-32); Calcium, Blood 9.2 mg/dL (8.5-10.1); Chloride, Blood 100 mmol/L (98-108); Creatinine, Blood 2.38 mg/dL (0.40-1.00); Glucose, Blood 286 mg/dL (70-99); Phosphorus, Blood 3.1 mg/dL (2.5-4.9); Potassium, Blood 6.4 mmol/L (3.5-5.5); Sodium, Blood 126 mmol/L (136-145)
[2025-02-05] MEDS ORDERED: Insulin Human Lispro 100 Units/ML 3ML Syringe SC SCH (16:30)
[2025-02-05 16:45] LABS: Source, Urine Clean Catch
[2025-02-05 18:09] VITALS: BP 138/87
[2025-02-05 18:14] LABS: Bilirubin, Urine Neg (Neg); Color, Urine Yellow (P-Yellow); Glucose Qualitative, Urine 1+ (Neg); Ketones, Urine Neg (Neg); Leukocyte Esterase, Urine Neg (Neg); Protein, Urine 2+ (Neg); Specific Gravity, Urine 1.005 (1.003-1.022); Urobilinogen, Urine NORM (Normal)
[2025-02-05 18:24] LABS: Red Blood Cells, Urine 0-2 /hpf (0-2); White Blood Cells, Urine 0-2 /hpf (0-5)
[2025-02-05] MEDS ORDERED: Lisinopril2.5 MG PO (18:26)
--- NOTE | 2025-02-05 19:12 | NUR ---
Pt arrived to 363 via gurney from ED, report was obtained from Yuan RN, pt moved to bed, a/ox4, pleasant and cooperative with care, follows commands well, states her kidneys hurt, lungs have an insp wheeze t/o, resp even and unlabored, no cough noted, but reports an occ productive cough but doesn't know what color, sats are 99% on r/a, hrr, tele in place running sr per monitor, see strip, no edema noted ppp+1, cap refill< 3 sec, vs stable, afebrile, piv to rhand site is clear and patent, infusing ns at 150mls/hr, btx4 abd flat soft nontender, reports she does not have any sensation to tell her she needs to void, so sets a timer at home, skin c/w/d, agatha farias, oriented to room layout and call system, call light in reach.
[2025-02-05 19:52] VITALS: BP 137/76
[2025-02-05] MEDS ORDERED: Heparin Sodium,Porcine 5,000 UNIT/0.5 ML SDV SC SCH (21:00)
[2025-02-05] MEDS ORDERED: Insulin Glargine-Yfgn 100 Unit/mL 3 ML SYR SC SCH (21:00)
[2025-02-06] VITALS (7 sets, daily range): BP systolic 107–131; BP diastolic 70–89
[2025-02-06] MEDS ORDERED: FentaNYL Citrate 50 MCG/ML 2 ML Injection IV PRN (04:30)
[2025-02-06 05:03] LABS: BASOPHILS ABSOLUTE AUTO 0.07 K/mm3 (0.00-0.23); BASOPHILS PERCENT AUTO 1 % (0-2); EOSINOPHILS ABSOLUTE AUTO 0.54 K/mm3 (0.00-0.68); EOSINOPHILS PERCENT AUTO 6 % (0-6); Hematocrit 31.2 % (33.0-51.0); Hemoglobin 10.8 g/dL (11.5-16.0); IMMATURE GRAN ABSOLUTE AUTO 0.02 K/mm3 (0.00-0.10); IMMATURE GRAN PERCENT AUTO 0 % (0-1); LYMPHOCYTES ABSOLUTE AUTO 4.40 K/mm3 (0.84-5.20); LYMPHOCYTES PERCENT AUTO 51 % (21-46); MONOCYTES ABSOLUTE AUTO 0.56 K/mm3 (0.16-1.47); MONOCYTES PERCENT AUTO 7 % (4-13); Mean Corpuscular HGB Conc 34.6 g/dL (31.5-36.5); Mean Corpuscular Volume 86 fL (80-100); NEUTROPHILS ABSOLUTE AUTO 3.06 K/mm3 (1.96-9.15); NEUTROPHILS PERCENT AUTO 35 % (41-73); NRBC ABSOLUTE 0.00 K/mm3 (0.00-0.02); NRBC Auto 0.0 /100 WBC (0.0-0.2); Platelet Count 302 K/mm3 (150-400); RDW Coefficient Variation 11.7 % (11.7-14.2); RDW Standard Deviation 36.2 fL (35.1-46.3)
[2025-02-06 05:26] LABS: Anion Gap 10.0 mmol/L (3-11); Blood Urea Nitrogen 32.0 mg/dL (8-24); CO2, Blood 23.0 mmol/L (21-32); Calcium, Blood 9.1 mg/dL (8.5-10.1); Chloride, Blood 104.0 mmol/L (98-108); Creatinine, Blood 2.11 mg/dL (0.40-1.00); Glucose, Blood 89.0 mg/dL (70-99); Sodium, Blood 133.0 mmol/L (136-145)
[2025-02-06 05:29] LABS: Potassium, Blood 4.2 mmol/L (3.5-5.5)
[2025-02-06] MEDS ORDERED: Levothyroxine Sodium 0.137 MG Tab PO SCH (06:00)
--- NOTE | 2025-02-06 06:13 | NUR ---
SHIFT SUMMARY;LALITHA SLEPT IN SHORT INTERVALS, HAD MAUSEA BUT NO EMESIS HAD TO CALL HOSPITALIST FOR PAIN MED ORDERS. LEFT FLANK PAIN. TELE SR 94. IV FLUIDS INFUSED A THEN DC'D. SHE ACCIDENTLY PULLED HER IV OUT.TELE SR 94. VSS.
--- NOTE | 2025-02-06 06:19 | NUR ---
SHIFT SUMMARY; PATIENT SLEPT IN LONG INTTERVALS, COPIOUS OUTPUT FROM ILEOSTMY. DEVORAH LIFT TO TRANSFER FROM RECLINER TO BED. HELD MIDNIGHT DOSE OF APRESLING. TELE SR 94. ONLY NEEDED SCHEDULED PAIN MED.
[2025-02-06] MEDS ORDERED: DULoxetine HCL 60 MG Capsule DR PO SCH (09:00)
--- NOTE | 2025-02-06 12:46 | NUR ---
Pt resting in bed watching tv, a/ox4, pleasant and cooperative with care, follows commands well, denies pain this am, lungs are clear t/o, resp even and unlabored, no cough noted, on r/a, hrr, no edema noted, ppp+1, cap refill<3 sec, vs stable, afebrile, piv to rfa site is clear and patent, btx4, abd flat soft nontender, voids, skin c/w/d, maew, agatha, call light in reach.
[2025-02-07 04:30] VITALS: BP 126/79
--- NOTE | 2025-02-07 06:25 | NUR ---
SHIFT SUMMARY; PATIENT SLEPT THRU THE NIGHT DENIES NAUSEA OR PAIN. HAD HER WALK BY HERSELF TO , TOLERATED WELL. TELE SR 93.
[2025-02-07 07:49] VITALS: BP 121/74
--- NOTE | 2025-02-07 12:05 | NUR ---
provider notifed of pt bg of 376 stated to give the med sc correction dose.
[2025-02-07 12:54] LABS: Ferritin, Serum 45.0 ng/mL (8-252); Total Iron Binding Capacity 244.0 ug/dL (250-450)
[2025-02-07 17:13] VITALS: BP 102/69
[2025-02-07 20:18] VITALS: BP 116/76
--- NOTE | 2025-02-07 20:59 | NUR ---
NOTIFIED DR. CALZADA OF BLADDER SCAN VOLUME (339ML) AND VOID VOLUME (300 ML). NO NEW ORDERS RECEIVED AT THIS TIME.
[2025-02-07] MEDS ORDERED: Sod Ferric Gluc Complx/Sucrose 125 MG in NS 100 ML IV SCH (22:07)
[2025-02-07 23:12] VITALS: BP 103/73
[2025-02-08 04:30] VITALS: BP 121/74
[2025-02-08 04:50] LABS: Hematocrit 25.8 % (33.0-51.0); Hemoglobin 8.9 g/dL (11.5-16.0); Mean Corpuscular HGB Conc 34.5 g/dL (31.5-36.5); Mean Corpuscular Volume 86 fL (80-100); NRBC ABSOLUTE 0.00 K/mm3 (0.00-0.02); NRBC Auto 0.0 /100 WBC (0.0-0.2); Platelet Count 245 K/mm3 (150-400); RDW Coefficient Variation 11.8 % (11.7-14.2); RDW Standard Deviation 37.4 fL (35.1-46.3)
[2025-02-08 05:09] LABS: Albumin, Blood 3.0 g/dL (3.4-5.0); Anion Gap 11 mmol/L (3-11); Blood Urea Nitrogen 33 mg/dL (8-24); CO2, Blood 22 mmol/L (21-32); Calcium, Blood 8.4 mg/dL (8.5-10.1); Chloride, Blood 103 mmol/L (98-108); Creatinine, Blood 1.93 mg/dL (0.40-1.00); Glucose, Blood 171 mg/dL (70-99); Magnesium, Blood 1.5 mg/dL (1.6-2.4); Phosphorus, Blood 4.4 mg/dL (2.5-4.9); Potassium, Blood 4.8 mmol/L (3.5-5.5); Sodium, Blood 131 mmol/L (136-145)
--- NOTE | 2025-02-08 06:41 | NUR ---
SHIFT SUMMARY A/Ox4, VSS ON RA. PT REPORTS SOB, LIGHTHEADEDNESS, WEAKNESS ON COMMODE, RESOLVED WITH REST. REPORTS STRAINING TO INITIATE URINARY STREAM. NEW ORDERS RECEIVED FOR BLADDER SCAN, STRAIGHT CATH IF >300 ML. SCAN SHOWED 339ML HOWEVER PT DID VOID 300ML POST-SCAN. RESULTS REPORTED TO DR. CALZADA. NEW IV PLACED WITH ULTRASOUND. NO ADVERSE EFFECTS NOTED WITH FERRIC INFUSION. PT DENIES PAIN, NAUSEA, OTHER COMPLAINTS. SAFETY PRECAUTIONS IN PLACE, PT USES CALL LIGHT APPROPRIATELY.
[2025-02-08 07:32] VITALS: BP 107/78
[2025-02-08 15:30] VITALS: BP 104/69
--- NOTE | 2025-02-08 17:47 | NUR ---
PATIENT IS ALERT AND ORIENTED AND COOPERATIVE WITH CARE. C/O FLANK PAIN, NAUSEA AND ANXIETY, MEDICATED PER EMAR. REPORTS IMPROVEMENT IN AMBULATING AND A DECREASE IN SOB WITH EXERTION. PATIENT HAS VOIDED 900 ML URINE THIS SHIFT. VSS. RA. NO NEW CONCERNS TODAY.
[2025-02-08 20:37] VITALS: BP 123/69
[2025-02-08 23:34] VITALS: BP 124/97
[2025-02-09 04:10] VITALS: BP 109/93
[2025-02-09 05:13] LABS: BASOPHILS ABSOLUTE AUTO 0.07 K/mm3 (0.00-0.23); BASOPHILS PERCENT AUTO 1 % (0-2); EOSINOPHILS ABSOLUTE AUTO 0.62 K/mm3 (0.00-0.68); EOSINOPHILS PERCENT AUTO 6 % (0-6); Hematocrit 26.3 % (33.0-51.0); Hemoglobin 8.8 g/dL (11.5-16.0); IMMATURE GRAN ABSOLUTE AUTO 0.02 K/mm3 (0.00-0.10); IMMATURE GRAN PERCENT AUTO 0 % (0-1); LYMPHOCYTES ABSOLUTE AUTO 4.34 K/mm3 (0.84-5.20); LYMPHOCYTES PERCENT AUTO 44 % (21-46); MONOCYTES ABSOLUTE AUTO 0.65 K/mm3 (0.16-1.47); MONOCYTES PERCENT AUTO 7 % (4-13); Mean Corpuscular HGB Conc 33.5 g/dL (31.5-36.5); Mean Corpuscular Volume 87 fL (80-100); NEUTROPHILS ABSOLUTE AUTO 4.14 K/mm3 (1.96-9.15); NEUTROPHILS PERCENT AUTO 42 % (41-73); NRBC ABSOLUTE 0.00 K/mm3 (0.00-0.02); NRBC Auto 0.0 /100 WBC (0.0-0.2); Platelet Count 261 K/mm3 (150-400); RDW Coefficient Variation 11.8 % (11.7-14.2); RDW Standard Deviation 37.9 fL (35.1-46.3)
[2025-02-09 05:34] LABS: Anion Gap 10.0 mmol/L (3-11); Blood Urea Nitrogen 34.0 mg/dL (8-24); CO2, Blood 24.0 mmol/L (21-32); Calcium, Blood 8.8 mg/dL (8.5-10.1); Chloride, Blood 104.0 mmol/L (98-108); Creatinine, Blood 2.1 mg/dL (0.40-1.00); Glucose, Blood 167.0 mg/dL (70-99); Potassium, Blood 4.7 mmol/L (3.5-5.5); Sodium, Blood 133.0 mmol/L (136-145)
--- NOTE | 2025-02-09 06:24 | NUR ---
SHIFT SUMMARY A/Ox4, VSS ON RA. NO ACUTE CHANGES OVERNIGHT. PT REPORTS 7/10 L FLANK PAIN, MANAGED PER AUG. PT DENIES SOB, NAUSEA, OTHER COMPLAINTS.
[2025-02-09 08:22] VITALS: BP 118/81
--- NOTE | 2025-02-09 10:42 | NUR ---
TELE VERIFICATION SCANNED TELE STRIP DATED 02/09/25 AT 07:31 VERIFIED NSR IN THE 80'S.
[2025-02-09 12:08] VITALS: BP 109/75
[2025-02-09] MEDS ORDERED: OXAYDO5 M1 PO (12:20)
--- NOTE | 2025-02-09 14:55 | NUR ---
DC SUMMARY PT DC THIS SHIFT DC INSTRUCTION GONE OVER WITH PT WHOM STATED UNDERSTANDING. HARD SCRIPT PLACED IN DC FOLDER AND PT PLACED IN BELONGINGS BAG. PT WAS ESCORTED OUT TO PRIVATE VEHICLE VIA W/C BY IN ROOM DINING SERVER AND FAMILY.
== END 2025-02-09 13:35 | disposition home or self-care (01) ==
LOC: ER 12:47 → MEDS 12:48 → ENPENDDIS 02-09 11:43 → MEDS 02-09 13:35
PROVIDERS: Emergency Medicine; Internal Medicine; ADMIT Family Medicine
DX: N17.9 Acute kidney failure, unspecified (principal); E87.5 Hyperkalemia; E87.1 Hypo-osmolality and hyponatremia; D63.1 Anemia in chronic kidney disease; N18.30 Chronic kidney disease, stage 3 unspecified; E10.22 Type 1 diabetes mellitus with diabetic chronic kidney disease; E03.9 Hypothyroidism, unspecified; E78.5 Hyperlipidemia, unspecified; E55.9 Vitamin D deficiency, unspecified; E87.70 Fluid overload, unspecified; E10.42 Type 1 diabetes mellitus with diabetic polyneuropathy; E10.43 Type 1 diabetes mellitus with diabetic autonomic (poly)neuropathy; K31.84 Gastroparesis; K21.9 Gastro-esophageal reflux disease without esophagitis; F41.8 Other specified anxiety disorders; F43.10 Post-traumatic stress disorder, unspecified; F17.210 Nicotine dependence, cigarettes, uncomplicated; Z90.49 Acquired absence of other specified parts of digestive tract; Z90.710 Acquired absence of both cervix and uterus; Z79.890 Hormone replacement therapy; Z79.899 Other long term (current) drug therapy; Z88.1 Allergy status to other antibiotic agents; Z88.2 Allergy status to sulfonamides; Z88.6 Allergy status to analgesic agent; Z88.8 Allergy status to other drugs, medicaments and biological substances; Z91.040 Latex allergy status
CPT/HCPCS: 36415; 51701; 71045; 76770; 80048; 80053; 80069; 81001; 82570; 82728; 82947; 83540; 83550; 83735; 83880; 83930; 83935; 84300; 84484; 84540; 85025; 85027; 85379; 87637; 93005; 93010; 96361; 96365; 96366; 96372; 96374; 96375; 96376; 99285-25; A9270; G0378; J0612; J1644; J1815; J1938; J2916; J3010; J7030

== ENCOUNTER 2025-05-11 11:01 | Emergency (ER) | payer OTHER ==
[~2025-05-11] VITALS: Ht 154.9 cm; Wt 54.4 kg
[~2025-05-11 11:01] MED LIST changes: +Lisinopril2.5 MG PO; +OXAYDO5 M1 PO
[2025-05-11] MEDS ORDERED: TORSE20 PO (11:44)
[2025-05-11 11:46] LABS: BASOPHILS ABSOLUTE AUTO 0.09 K/mm3 (0.00-0.23); BASOPHILS PERCENT AUTO 1 % (0-2); EOSINOPHILS ABSOLUTE AUTO 0.56 K/mm3 (0.00-0.68); EOSINOPHILS PERCENT AUTO 7 % (0-6); Hematocrit 37.4 % (33.0-51.0); Hemoglobin 13.3 g/dL (11.5-16.0); IMMATURE GRAN ABSOLUTE AUTO 0.01 K/mm3 (0.00-0.10); IMMATURE GRAN PERCENT AUTO 0 % (0-1); LYMPHOCYTES ABSOLUTE AUTO 3.26 K/mm3 (0.84-5.20); LYMPHOCYTES PERCENT AUTO 40 % (21-46); MONOCYTES ABSOLUTE AUTO 0.61 K/mm3 (0.16-1.47); MONOCYTES PERCENT AUTO 7 % (4-13); Mean Corpuscular HGB Conc 35.6 g/dL (31.5-36.5); Mean Corpuscular Volume 86 fL (80-100); NEUTROPHILS ABSOLUTE AUTO 3.67 K/mm3 (1.96-9.15); NEUTROPHILS PERCENT AUTO 45 % (41-73); NRBC ABSOLUTE 0.00 K/mm3 (0.00-0.02); NRBC Auto 0.0 /100 WBC (0.0-0.2); Platelet Count 340 K/mm3 (150-400); RDW Coefficient Variation 11.5 % (11.7-14.2); RDW Standard Deviation 36.3 fL (35.1-46.3)
[2025-05-11] MEDS ORDERED: TUMS500 MG PO (11:47)
[2025-05-11 11:58] LABS: Alanine Aminotransfer (ALT/SGP 17.0 U/L (12-78); Albumin, Blood 3.8 g/dL (3.4-5.0); Albumin/Globulin Ratio 0.8 (0.8-1.8); Anion Gap 9.0 mmol/L (3-11); Aspartate Aminotrans (AST/SGOT 13.0 U/L (12-37); Bilirubin, Total 0.4 mg/dL (0.1-1.0); Blood Urea Nitrogen 30.0 mg/dL (8-24); CO2, Blood 22.0 mmol/L (21-32); Calcium, Blood 9.3 mg/dL (8.5-10.1); Chloride, Blood 102.0 mmol/L (98-108); Creatinine, Blood 1.83 mg/dL (0.40-1.00); Globulin, Blood 4.7 g/dL (2.2-4.0); Glucose, Blood 294.0 mg/dL (70-99); Potassium, Blood 4.9 mmol/L (3.5-5.5); Sodium, Blood 128.0 mmol/L (136-145); Total Protein, Blood 8.5 g/dL (6.4-8.2)
[2025-05-11] MEDS ORDERED: NS 1,000 ML IV SCH ×2 (12:15→14:05)
[2025-05-11] MEDS ORDERED: Ondansetron HCl 2 MG / ML 2ML Vial IV ONE (12:15)
[2025-05-11] MEDS ORDERED: FentaNYL Citrate 50 MCG/ML 2 ML Injection IV ONE (12:15)
[2025-05-11 13:05] LABS: CORONAVIRUS COVID-19 AG Negative (NEGATIVE)
[2025-05-11 13:55] LABS: Source, Urine Clean Catch
[2025-05-11 14:07] LABS: Bilirubin, Urine Neg (Neg); Color, Urine Yellow (P-Yellow); Glucose Qualitative, Urine 2+ (Neg); Ketones, Urine Neg (Neg); Leukocyte Esterase, Urine Neg (Neg); Protein, Urine 3+ (Neg); Specific Gravity, Urine 1.020 (1.003-1.022); Urobilinogen, Urine NORM (Normal)
[2025-05-11 14:36] LABS: Red Blood Cells, Urine 0-2 /hpf (0-2); White Blood Cells, Urine 0-2 /hpf (0-5)
[2025-05-11 15:26] VITALS: BP 146/88
[2025-05-11] MEDS ORDERED: Percocet 5-3251 EACH PO (15:29)
== END 2025-05-11 15:55 | disposition home or self-care (01) ==
LOC: ER 11:01
PROVIDERS: Emergency Medicine
DX: E86.0 Dehydration (principal); E87.1 Hypo-osmolality and hyponatremia; N28.9 Disorder of kidney and ureter, unspecified; E10.22 Type 1 diabetes mellitus with diabetic chronic kidney disease; N18.4 Chronic kidney disease, stage 4 (severe); E03.9 Hypothyroidism, unspecified; E10.42 Type 1 diabetes mellitus with diabetic polyneuropathy; E78.5 Hyperlipidemia, unspecified; K21.9 Gastro-esophageal reflux disease without esophagitis; F17.210 Nicotine dependence, cigarettes, uncomplicated; Z88.1 Allergy status to other antibiotic agents; Z91.040 Latex allergy status; Z88.2 Allergy status to sulfonamides; Z88.6 Allergy status to analgesic agent; Z88.8 Allergy status to other drugs, medicaments and biological substances; Z79.4 Long term (current) use of insulin; Z79.890 Hormone replacement therapy; Z79.899 Other long term (current) drug therapy
CPT/HCPCS: 80053; 81001; 85025; 87086; 87428-QW; 93005; 93010; 96361; 96374; 96375; 99285-25; J2405; J3010; J7030